=== PATIENT | male | born 1985 | race Caucasian/White ===

== ENCOUNTER 2019-08-13 10:11 | Emergency (ER) | payer BC ==
[2019-08-13] MEDS ORDERED: Benzocaine 20% Topical Spray UD MUCMEM ONE (10:12)
[2019-08-13] MEDS ORDERED: Lidocaine 2% Viscous Solution 15 ML Cup PO ONE (10:12)
--- NOTE | 2019-08-13 10:14 | EDM.PDOC ---
ED HPI GENERAL MEDICAL PROBLEM - General Stated Complaint: right toothache Time Seen by Provider: 08/13/19 10:12 Source of Information: Reports: Patient History Limitations: Reports: No Limitations - History of Present Illness INITIAL COMMENTS - FREE TEXT/NARRATIVE: HISTORY AND PHYSICAL: History of present illness: Patient is a 34-year-old male presents to the ED today with concern of right- sided lower tooth pain 1 day. Patient states in general he is severely bad teeth which have been breaking down for many years. Patient states she has not seen the dentist in many years and has not called to make an appointment for his teeth. Patient denies any swelling and states it feels as if his teeth are broken. He denies any pus drainage, difficulties swallowing/breathing. Patient denies fever, chills, chest pain, shortness of breath, or cough. Denies headache, neck stiff ness, change in vision, syncope, or near syncope. Denies nausea, vomiting, abdominal pain, diarrhea, constipation, or dysuria. Has not noted any blood in urine or stool. Patient has been eating and drinking appropriately. Review of systems: As per history of present illness and below otherwise all systems reviewed and negative. Past medical history: As per history of present illness and as reviewed below otherwise noncontributory. Surgical history: As per history of present illness and as reviewed below otherwise noncontributory. Social history: See social history for further information Family history: As per history of present illness and as reviewed below otherwise noncontributory. Physical exam: General: Patient is alert, oriented, and in no acute distress. Patient sitting comfortably on exam table. HEENT: Atraumatic, normocephalic, pupils equal and reactive bilaterally, negative for conjunctival pallor or scleral icterus, mucous membranes moist, TMs normal bilaterally, throat clear, neck supple, nontender, trachea midline. No drooling or trismus noted. No meningeal signs. No hot potato voice noted. Generalized poor dentition with all teeth in various stages of erosions. Specifically tooth 30-31 are severely eroded with semi exposed nerve root and pain with palpation. No adjacent edema of the gumline or mandible with no sign of abscess. Lungs: Clear to auscultation, breath sounds equal bilaterally, chest nontender. Heart: S1S2, regular rate and rhythm without overt murmur Abdomen: Soft, nondistended, nontender. Negative for masses or hepatosplenomegaly. Negative for costovertebral tenderness. Pelvis: Stable nontender. Genitourinary: Deferred. Rectal: Deferred. Skin: Intact, warm, dry. No lesions or rashes noted. Extremities: Atraumatic, negative for cords or calf pain. Neurovascular unremarkable. Neuro: Awake, alert, oriented. Cranial nerves II through XII unremarkable. Cerebellum unremarkable. Motor and sensory unremarkable throughout. Exam nonfocal. Notes: Discussed the importance for follow-up with a dentist. Voices understanding and is agreeable to plan of care. Denies any further questions or concerns at this time. Diagnostics: None Therapeutics: Dental balls Prescription: None Impression: Severe tooth decay / erosion Plan: 1. Tylenol and/or ibuprofen as directed and as needed for pain management. 2. "Tooth Balls" have been given to you; apply along the gumline every 2-3 hours as needed. Do not swallow these; external use only. 3. Follow-up with a dentist for definitive care. Return to the ED as needed and as discussed. Definitive disposition and diagnosis as appropriate pending reevaluation and review of above. ED ROS GENERAL - Review of Systems Review Of Systems: ROS reveals no pertinent complaints other than HPI. ED EXAM, GENERAL - Physical Exam Exam: See Below (See dictation) Course - Orders/Labs/Meds Meds: Medications Discontinued Medications Generic Name Dose Route Start Last Admin Trade Name Luigiq PRN Reason Stop Dose Admin Benzocaine 2 each 08/13/19 10:12 Hurricaine One 20% MUCMEM 08/13/19 10:13 ONETIME ONE Lidocaine HCl 15 ml 08/13/19 10:12 Xylocaine 2% Viscous PO 08/13/19 10:13 ONETIME ONE Departure - Departure Time of Disposition: 10:25 Disposition: Home, Self-Care 01 Clinical Impression: Tooth decay, Tooth erosion, Poor dentition - Discharge Information Additional Instructions: The following information is given to patients seen in the emergency department who are being discharged to home. This information is to outline your options for follow-up care. We provide all patients seen in our emergency department with a follow-up referral. The need for follow-up, as well as the timing and circumstances, are variable depending upon the specifics of your emergency department visit. If you don't have a primary care physician on staff, we will provide you with a referral. We always advise you to contact your personal physician following an emergency department visit to inform them of the circumstance of the visit and for follow-up with them and/or the need for any referrals to a consulting specialist. The emergency department will also refer you to a specialist when appropriate. This referral assures that you have the opportunity for follow-up care with a specialist. All of these measure are taken in an effort to provide you with optimal care, which includes your follow-up. Under all circumstances we always encourage you to contact your private physician who remains a resource for coordinating your care. When calling for follow-up care, please make the office aware that this follow-up is from your recent emergency room visit. If for any reason you are refused follow-up, please contact the [facility] Emergency Department at and asked to speak to the emergency department charge nurse. [facility] [address] [place] [address] [place] [address] 1. Tylenol and/or ibuprofen as directed and as needed for pain management. 2. "Tooth Balls" have been given to you; apply along the gumline every 2-3 hours as needed. Do not swallow these; external use only. 3. Follow-up with a dentist for definitive care. Return to the ED as needed and as discussed.
== END 2019-08-13 10:40 | disposition home or self-care (01) ==
LOC: MW.ED 10:11
DX: K03.2 Erosion of teeth (principal); K02.9 Dental caries, unspecified
CPT/HCPCS: 99282; A9270

== ENCOUNTER 2020-05-07 20:38 | Observation (INO) | payer SELFPAY ==
[2020-05-07] MEDS ORDERED: Sodium Chloride 0.9% 10 ML Syringe FLUSH PRN (20:58)
[2020-05-07] MEDS ORDERED: Sodium Chloride 0.9% 1,000 ML IV ONE (20:58)
[2020-05-07] MEDS ORDERED: Sodium Chloride 0.9% 2.5 ML Syringe FLUSH PRN (20:58)
[2020-05-07] MEDS ORDERED: Ketorolac 15 MG/ML SDV IVPUSH ONE (20:58)
--- NOTE | 2020-05-07 21:06 | EDM.PDOC ---
ED HPI GENERAL MEDICAL PROBLEM - General Chief Complaint: Respiratory Problem Stated Complaint: DIFFICULTY BREATHING,PAIN IN BACK Time Seen by Provider: 05/07/20 20:52 - History of Present Illness INITIAL COMMENTS - FREE TEXT/NARRATIVE: HISTORY AND PHYSICAL: History of present illness: This is a healthy 34-year-old gentleman who presents the ER today complaining of acute onset of left upper back and shoulder pain with associated shortness of breath that started prior to arrival. Patient denies any recent fevers, shakes, chills, nausea, vomiting, diarrhea, dysuria, frequency, urgency, abdominal pain. Patient denies any calf tenderness or lower extremity edema. Patient reports he is extremely active. Patient denies any family history of PE or DVT. Patient denies any diaphoresis, nausea, pain radiating to his jaws or arms. Patient denies any recent trauma or heavy lifting. 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 Patient reports that the symptoms were relatively acute in onset. Patient reports yesterday he was doing well. Patient reports that he had 3 cups of coffee today which is not unusual for him. He reports that he frequently drinks energy drinks however he has not had any energy drinks today. Patient reports pain is nonreproducible with movement or deep inspiration. Patient denies any known coronavirus exposures. Patient reports he has not been tested for coronavirus in the past. Patient denies any history of hypertension, diabetes, liver, lung, kidney problems. Patient denies any history of DVT or PE in the past. Patient denies any prior surgeries. Patient has no known drug allergies. Patient reports he smokes cigarettes but denies any alcohol or drug use. Review of systems: As per history of present illness and below otherwise all systems reviewed and negative. Past medical history: As per history of present illness and as reviewed below otherwise noncontributory. Surgical history: As per history of present illness and as reviewed below otherwise noncontributory. Social history: No reported history of drug or alcohol abuse. Family history: As per history of present illness and as reviewed below otherwise noncontributory. Physical exam: Patient is tachycardic with a heart rate of 115-125 in the ED. Patient is nondiaphoretic. Constitutional: Patient is oriented to person, place, and time. Appears well- developed and well-nourished. No distress. HEENT: Moist mucous membranes Head: Normocephalic and atraumatic Eyes: Right eye exhibits no discharge. Left eye exhibits no discharge. No scleral icterus Neck: Normal range of motion. No tracheal deviation present. Cardiovascular: Normal rate and regular rhythm. No RV heave. No split S2. Pulmonary: Effort normal, no respiratory distress. Lungs clear without any wheezing rales or rhonchi. Equal breath sounds bilaterally. Abdominal: No distention Musculoskeletal: Normal range of motion, Neurologic: Alert and oriented to person, place and time. Skin: [place], warm and dry. Psychiatric: Normal mood and affect. Behavior is normal. Judgment and thought content normal. Patient was tenderness to palpation to his left upper shoulder and back. Pat ient with palpable left axillary mass tender to palpation. Nursing note and vital signs have been reviewed Diagnostics: CTA of thorax CBC, CMP, troponin, d-dimer, INR Therapeutics: Toradol 15 mg IV NSS wide open x1 L Impression: 1. 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 2. Intractable pain secondary to Likely lymphoma. 3. Persistent unexplained tachycardia 4. Anemia Plan: Admit Definitive disposition and diagnosis as appropriate pending reevaluation and review of above. 12:13 AM: CT scan report highly concerning for lymphoma. Patient has a large amount of mediastinal and hilar adenopathy as well as multiple pulmonary masses and right adnexal adenopathy. Findings most likely representing metastatic disease with lymphoma being high within the differential,. Splenic lesions also noted. No findings of pulmonary embolism. Patient has been reevaluated by me and I discussed with him the CT scan reports. Patient still having severe pain to his left shoulder. Patient be given Dilaudid 1 mg IV, Zofran, Toradol to assist with pain management. Patient has remained tachycardic in the ED despite 1 L of normal saline and Toradol earlier in the ED. Patient's labs are concerning for microcytic anemia with a hemoglobin of 10.6 . 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 - Related Data Allergies Allergy/AdvReac Type Severity Reaction Status Date / Time No Known Allergies Allergy Verified 05/07/20 20:45 Home Meds: Home Meds . [No Known Home Meds] 08/13/19 [History] Past Medical History HEENT History: Reports: None Cardiovascular History: Reports: None Respiratory History: Reports: None Gastrointestinal History: Reports: None Genitourinary History: Reports: None Musculoskeletal History: Reports: None Neurological History: Reports: None Psychiatric History: Reports: None Endocrine/Metabolic History: Reports: None Hematologic History: Reports: None Immunologic History: Reports: None Oncologic (Cancer) History: Reports: None Dermatologic History: Reports: None - Past Surgical History Head Surgeries/Procedures: Reports: None HEENT Surgical History: Reports: None Cardiovascular Surgical History: Reports: None Respiratory Surgical History: Reports: None GI Surgical History: Reports: None Male Surgical History: Reports: None Endocrine Surgical History: Reports: None Neurological Surgical History: Reports: None Musculoskeletal Surgical History: Reports: None Other Musculoskeletal Surgeries/Procedures:: left wrist surgery Oncologic Surgical History: Reports: None Dermatological Surgical History: Reports: None Social & Family History - Family History Family Medical History: Noncontributory - Tobacco Use Smoking Status *Q: Current Every Day Smoker Years of Tobacco use: 20 Packs/Tins Daily: 1 - Caffeine Use Caffeine Use: Reports: None - Recreational Drug Use Recreational Drug Use: No ED ROS GENERAL - Review of Systems Review Of Systems: Comprehensive ROS is negative, except as noted in HPI. ED EXAM, GENERAL - Physical Exam Exam: See Below Course - Vital Signs Last Recorded V/S: Last Vital Signs Temp 97.4 F 05/07/20 20:43 Pulse 113 H 05/07/20 20:43 Resp 19 05/07/20 20:43 BP 127/88 05/07/20 20:43 Pulse Ox 98 05/07/20 20:43 - Orders/Labs/Meds Orders: Active Orders 24 hr Category Date Time Status EKG Documentation Completion [RC] AM Care 05/07/20 20:58 Active Sodium Chloride 0.9% [Saline Flush] Med 05/07/20 20:58 Active 10 ml FLUSH ASDIRECTED PRN Sodium Chloride 0.9% [Saline Flush] Med 05/07/20 20:58 Active 2.5 ml FLUSH ASDIRECTED PRN Saline Lock Insert [OM.PC] Stat Oth 05/07/20 20:58 Ordered Medication Orders Sodium Chloride (Saline Flush) 10 ml FLUSH ASDIRECTED PRN PRN Reason: Keep Vein Open Sodium Chloride (Saline Flush) 2.5 ml FLUSH ASDIRECTED PRN PRN Reason: Keep Vein Open Labs: Laboratory Tests 05/07/20 05/07/20 05/07/20 Range/Units 21:05 21:05 21:05 WBC 16.60 H (4.0-11.0) K/uL RBC 4.57 (4.50-5.90) M/uL Hgb 10.6 L (13.0-17.0) g/dL Hct 34.8 L (38.0-50.0) % MCV 76.1 L (80.0-98.0) fL MCH 23.2 L (27.0-32.0) pg MCHC 30.5 L (31.0-37.0) g/dL RDW Std Deviation 43.1 (28.0-62.0) fl RDW Coeff of Carol 16 H (11.0-15.0) % Plt Count 446 H (150-400) K/uL MPV 9.70 (7.40-12.00) fL Neut % (Auto) 77.0 (48.0-80.0) % Lymph % (Auto) 12.7 L (16.0-40.0) % Vance % (Auto) 8.9 (0.0-15.0) % Eos % (Auto) 1.2 (0.0-7.0) % Baso % (Auto) 0.2 (0.0-1.5) % Neut # (Auto) 12.8 H (1.4-5.7) K/uL Lymph # (Auto) 2.1 (0.6-2.4) K/uL Vance # (Auto) 1.5 H (0.0-0.8) K/uL Eos # (Auto) 0.2 (0.0-0.7) K/uL Baso # (Auto) 0.0 (0.0-0.1) K/uL Nucleated RBC % 0.0 /100WBC Nucleated RBCs # 0 K/uL INR D-Dimer, Quantitative 1.90 H (0.0-0.50) mg/L FEU Sodium 140 (136-148) mmol/L Potassium 3.9 (3.5-5.1) mmol/L Chloride 103 (98-107) mmol/L Carbon Dioxide 27.6 (21.0-32.0) mmol/L BUN 10 (7.0-18.0) mg/dL Creatinine 0.8 (0.8-1.3) mg/dL Est Cr Clr Drug Dosing 125.88 mL/min Estimated GFR (MDRD) > 60.0 ml/min Glucose 113 H (74-106) mg/dL Calcium 9.1 (8.5-10.1) mg/dL Total Bilirubin 0.5 (0.2-1.0) mg/dL AST 24 (15-37) IU/L ALT 15 (14-63) IU/L Alkaline Phosphatase 90 (46-116) U/L Troponin I < 0.050 (0.000-0.056) ng/mL B-Natriuretic Peptide (<100) PG/ML Total Protein 7.3 (6.4-8.2) g/dL Albumin 3.1 L (3.4-5.0) g/dL Globulin 4.2 H (2.6-4.0) g/dL Albumin/Globulin Ratio 0.7 L (0.9-1.6) 05/07/20 05/07/20 Range/Units 21:05 21:05 WBC (4.0-11.0) K/uL RBC (4.50-5.90) M/uL Hgb (13.0-17.0) g/dL Hct (38.0-50.0) % MCV (80.0-98.0) fL MCH (27.0-32.0) pg MCHC (31.0-37.0) g/dL RDW Std Deviation (28.0-62.0) fl RDW Coeff of Carol (11.0-15.0) % Plt Count (150-400) K/uL MPV (7.40-12.00) fL Neut % (Auto) (48.0-80.0) % Lymph % (Auto) (16.0-40.0) % Vance % (Auto) (0.0-15.0) % Eos % (Auto) (0.0-7.0) % Baso % (Auto) (0.0-1.5) % Neut # (Auto) (1.4-5.7) K/uL Lymph # (Auto) (0.6-2.4) K/uL Vance # (Auto) (0.0-0.8) K/uL Eos # (Auto) (0.0-0.7) K/uL Baso # (Auto) (0.0-0.1) K/uL Nucleated RBC % /100WBC Nucleated RBCs # K/uL INR 1.00 D-Dimer, Quantitative (0.0-0.50) mg/L FEU Sodium (136-148) mmol/L Potassium (3.5-5.1) mmol/L Chloride (98-107) mmol/L Carbon Dioxide (21.0-32.0) mmol/L BUN (7.0-18.0) mg/dL Creatinine (0.8-1.3) mg/dL Est Cr Clr Drug Dosing mL/min Estimated GFR (MDRD) ml/min Glucose (74-106) mg/dL Calcium (8.5-10.1) mg/dL Total Bilirubin (0.2-1.0) mg/dL AST (15-37) IU/L ALT (14-63) IU/L Alkaline Phosphatase (46-116) U/L Troponin I (0.000-0.056) ng/mL B-Natriuretic Peptide 78 (<100) PG/ML Total Protein (6.4-8.2) g/dL Albumin (3.4-5.0) g/dL Globulin (2.6-4.0) g/dL Albumin/Globulin Ratio (0.9-1.6) Meds: Medications Generic Name Dose Route Start Last Admin Trade Name Freq PRN Reason Stop Dose Admin Sodium Chloride 10 ml 05/07/20 20:58 Saline Flush FLUSH ASDIRECTED PRN Keep Vein Open Sodium Chloride 2.5 ml 05/07/20 20:58 Saline Flush FLUSH ASDIRECTED PRN Keep Vein Open Discontinued Medications Generic Name Dose Route Start Last Admin Trade Name Freq PRN Reason Stop Dose Admin Hydromorphone HCl 1 mg 05/08/20 00:11 Dilaudid IVPUSH 05/08/20 00:12 ONETIME ONE Sodium Chloride 1,000 mls @ 999 mls/hr 05/07/20 20:58 05/07/20 21:17 Normal Saline IV 05/07/20 21:58 999 mls/hr .Bolus ONE Administration Iopamidol 50 ml 05/07/20 22:55 05/07/20 22:57 Isovue-370 (76%) IV 05/07/20 22:56 50 ml ONETIME STA Administration Ketorolac Tromethamine 15 mg 05/07/20 20:58 05/07/20 21:17 Toradol IVPUSH 05/07/20 20:59 15 mg ONETIME ONE Administration Nicotine 21 mg 05/08/20 00:11 Habitrol TRDERM 05/08/20 00:12 ONETIME ONE Ondansetron HCl 4 mg 05/08/20 00:11 Zofran IVPUSH 05/08/20 00:12 ONETIME ONE Departure - Departure Time of Disposition: 00:19 Disposition: Admitted As Inpatient 66 Clinical Impression: Microcytic anemia, Lymphoma involving lung, Intractable pain, Tachycardia - Discharge Information *PRESCRIPTION DRUG MONITORING PROGRAM REVIEWED*: Not Applicable *COPY OF PRESCRIPTION DRUG MONITORING REPORT IN PATIENT [place]: Not Applicable Referrals: PCP,None [Primary Care Provider] - Forms: ED Department Discharge Sepsis Event Note (ED) - Evaluation Sepsis Screening Result: No Definite Risk - Focused Exam Vital Signs: Vital Signs Temp Pulse Resp BP Pulse Ox 05/07/20 20:43 97.4 F 113 H 19 127/88 98 - My Orders Last 24 Hours: My Active Orders 05/07/20 20:58 EKG Documentation Completion [RC] AM Sodium Chloride 0.9% [Saline Flush] 10 ml FLUSH ASDIRECTED PRN Sodium Chloride 0.9% [Saline Flush] 2.5 ml FLUSH ASDIRECTED PRN Saline Lock Insert [OM.PC] Stat - Assessment/Plan Last 24 Hours: My Active Orders 05/07/20 20:58 EKG Documentation Completion [RC] AM Sodium Chloride 0.9% [Saline Flush] 10 ml FLUSH ASDIRECTED PRN Sodium Chloride 0.9% [Saline Flush] 2.5 ml FLUSH ASDIRECTED PRN Saline Lock Insert [OM.PC] Stat
[2020-05-07 21:53] LABS: BLOOD UREA NITROGEN,BUN 10 mg/dL (7.0-18.0); CARBON DIOXIDE,CO2 27.6 mmol/L (21.0-32.0); CHLORIDE,CL 103 mmol/L (98-107); GLUCOSE RANDOM 113 mg/dL (74-106); POTASSIUM,K 3.9 mmol/L (3.5-5.1); SODIUM,NA 140 mmol/L (136-148)
[2020-05-07] MEDS ORDERED: Iopamidol 755 MG/ML 50 ML Bottle IV STA (22:55)
--- NOTE | 2020-05-07 23:06 | CT ---
CT chest Technique: Multiple axial sections were obtained from above the lung apices inferiorly through the lung bases. Intravenous contrast was utilized. Study has been performed as a pulmonary angiogram protocol. Findings: Pulmonary arteries are well-opacified. No filling defects are seen to indicate pulmonary embolism. Diffuse mediastinal and hilar adenopathy is seen. Multiple parenchymal masses are seen within both sides of the chest. Findings are compatible with diffuse metastatic disease. Massive adenopathy is also noted within the right axillary region. Splenic lesion is also seen. Impression: 1. Large amount of mediastinal and hilar adenopathy as well as multiple pulmonary masses and right axillary adenopathy. Findings most likely representing metastatic disease with lymphoma being high within the differential, please correlate if type of malignancy is known. Splenic lesion is also noted. 2. No findings of pulmonary embolism. Diagnostic code #9 Study was dictated in MDT
[2020-05-08] MEDS ORDERED: HYDROmorphone 1 MG/ML Syringe IVPUSH ONE (00:11)
[2020-05-08] MEDS ORDERED: Ondansetron 4 MG/2 ML SDV IVPUSH ONE (00:11)
[2020-05-08] MEDS ORDERED: Nicotine 21 MG/24 Hr Patch TRDERM ONE (00:11)
[2020-05-08] MEDS ORDERED: Ondansetron 4 MG/2 ML SDV IVPUSH PRN (01:14)
[2020-05-08] MEDS ORDERED: Albuterol/Ipratropium 3.0-0.5 MG/3 ML Neb Soln NEB PRN (01:14)
[2020-05-08] MEDS ORDERED: Morphine 10 MG/ML Syringe IVPUSH PRN (01:14)
[2020-05-08] MEDS ORDERED: Enoxaparin 40 MG/0.4 ML Syringe SUBCUT SCH ×2 (01:15→06:00)
[2020-05-08] MEDS: Lactated Ringers 1,000 ML IV SCH ×2 (03:37→11:09)
[2020-05-08] MEDS: Morphine 2 MG/ML Syringe IVPUSH PRN ×4 (04:34→21:13)
[2020-05-08 06:27] LABS: BLOOD UREA NITROGEN,BUN 10 mg/dL (7.0-18.0); CHLORIDE,CL 102 mmol/L (98-107); GLUCOSE RANDOM 139 mg/dL (74-106); POTASSIUM,K 3.6 mmol/L (3.5-5.1); SODIUM,NA 140 mmol/L (136-148)
[2020-05-08] MEDS: Pantoprazole 40 MG in Sodium Chloride 0.9% 10 ML IV SCH ×2 (08:43→21:27)
[2020-05-08] MEDS: Nicotine 14 MG/24 Hr Patch TRDERM SCH (08:45)
[2020-05-08] MEDS ORDERED: Pantoprazole 40 MG Vial IV SCH (09:00)
--- NOTE | 2020-05-08 09:20 | PCM.HP.2 ---
H&P History of Present Illness - General Date of Service: 05/08/20 Admit Problem/Dx: Admission Diagnosis/Problem Admission Diagnosis/Problem Tachycardia Source of Information: Patient History Limitations: Reports: No Limitations - History of Present Illness Initial Comments - Free Text/Narative: 34 y.o generally healthy male presenting yesterday w. acute left upper back and shoulder pain, dyspnea which started about 1-2 hours prior to arrival to ED. pt. 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 Denies other symptoms including fevers, chills, N/V, diarrhea and or constipation. Denies night sweats, weight loss and or changes in appetite as well. ED course: Found to be tachycardic in the 110's-130's; recived [place] bolus; elevated D-dimer; CTA ordered CTA: large mediastinal LAD, multiple pulmonary masses and right adnexal adenopathy. troponin negative Pain control: morphine, Toradol + Zofran Admitted to observation Bedside AM: pt. endorses left shoulder pain. Discussed mass in his right armpit ; noticed not too long ago; has not had it evaluated. Mentions having a "lump" taken out over his left wrist; but cannot recall what was removed. NO other acute complaints at this time. Bilateral Upper Posterior Back Pain Score (Numeric/FACES): 10 - Related Data Allergies/Adverse Reactions: Allergies Allergy/AdvReac Type Severity Reaction Status Date / Time No Known Allergies Allergy Verified 05/08/20 07:36 Home Medications: Home Meds . [No Known Home Meds] 08/13/19 [History] Past Medical History - Past Health History Medical/Surgical History: Denies Medical/Surgical History HEENT History: Reports: None Cardiovascular History: Reports: None Respiratory History: Reports: None Gastrointestinal History: Reports: None Genitourinary History: Reports: None Musculoskeletal History: Reports: None Neurological History: Reports: None Psychiatric History: Reports: None Endocrine/Metabolic History: Reports: None Hematologic History: Reports: None Immunologic History: Reports: None Oncologic (Cancer) History: Reports: Other (See Below) Other Oncologic History: pt states, whatever cancer I currently have Dermatologic History: Reports: None - Infectious Disease History Infectious Disease History: Reports: Chicken Pox - Past Surgical History Head Surgeries/Procedures: Reports: None HEENT Surgical History: Reports: None Cardiovascular Surgical History: Reports: None Respiratory Surgical History: Reports: None GI Surgical History: Reports: None Male Surgical History: Reports: None Endocrine Surgical History: Reports: None Neurological Surgical History: Reports: None Musculoskeletal Surgical History: Reports: None Other Musculoskeletal Surgeries/Procedures:: left wrist surgery Oncologic Surgical History: Reports: None Dermatological Surgical History: Reports: None Social & Family History - Family History Family Medical History: Noncontributory Cardiac: Reports: [place] OBGYN: Reports: Oncologic: Reports: Breast - Tobacco Use Smoking Status *Q: Current Every Day Smoker Years of Tobacco use: 14 Packs/Tins Daily: 1 Used Tobacco, but Quit: No Second Hand Smoke Exposure: No - Caffeine Use Caffeine Use: Reports: Coffee, Energy Drinks, Soda, Tea - Recreational Drug Use Recreational Drug Use: No H&P Review of Systems - Review of Systems: Review Of Systems: See Below General: Denies: Fever, Chills, Malaise, Weakness, Fatigue, Night Sweats, Diaphoresis, Decreased Appetite, Weight Loss, Weight Gain HEENT: Reports: No Symptoms Pulmonary: Reports: No Symptoms Cardiovascular: Reports: No Symptoms Gastrointestinal: Reports: No Symptoms Genitourinary: Reports: No Symptoms Musculoskeletal: Reports: Shoulder Pain, Back Pain Skin: Reports: No Symptoms Psychiatric: Reports: No Symptoms Neurological: Reports: No Symptoms Exam - Exam Exam: See Below - Vital Signs Vital Signs: Last Vital Signs Temp 100.6 F 05/08/20 08:31 Pulse 110 H 05/08/20 08:31 Resp 22 H 05/08/20 08:31 BP 130/86 05/08/20 08:31 Pulse Ox 90 L 05/08/20 08:31 Weight: 77.337 kg - Exam Quality Assessment: No: Supplemental Oxygen General: Alert, Oriented, Cooperative HEENT: EOMI Neck: Supple, Trachea Midline. No: Lymphadenopathy Lungs: Clear to Auscultation, Normal Respiratory Effort Cardiovascular: Regular Rate, Regular Rhythm GI/Abdominal Exam: Soft, Non-Tender, No Organomegaly Back Exam: Other (2 x 2 cm soft mass/spongy; non-fluctuant over left shoulder; over bony prominence; -mild tenderness ) Extremities: Normal Inspection, Normal Range of Motion Skin: Other (right axilla: large 3x 2 inch moveable mass apprecaited; non-tender , no overlyingh skin changes ) Neurological: Cranial Nerves Intact Neuro Extensive - Mental Status: Alert, Oriented x3, Normal Mood/Affect Neuro Extensive - Motor, Sensory, Reflexes: Normal Gait Psychiatric: Alert, Normal Affect, Normal Mood - Patient Data Lab Results Last 24 hrs: Laboratory Results - last 24 hr 05/07/20 05/07/20 05/07/20 Range/Units 21:05 21:05 21:05 WBC 16.60 H (4.0-11.0) K/uL RBC 4.57 (4.50-5.90) M/uL Hgb 10.6 L (13.0-17.0) g/dL Hct 34.8 L (38.0-50.0) % MCV 76.1 L (80.0-98.0) fL MCH 23.2 L (27.0-32.0) pg MCHC 30.5 L (31.0-37.0) g/dL RDW Std Deviation 43.1 (28.0-62.0) fl RDW Coeff of Carol 16 H (11.0-15.0) % Plt Count 446 H (150-400) K/uL MPV 9.70 (7.40-12.00) fL Neut % (Auto) 77.0 (48.0-80.0) % Lymph % (Auto) 12.7 L (16.0-40.0) % [place] % (Auto) 8.9 (0.0-15.0) % Eos % (Auto) 1.2 (0.0-7.0) % Baso % (Auto) 0.2 (0.0-1.5) % Neut # (Auto) 12.8 H (1.4-5.7) K/uL Lymph # (Auto) 2.1 (0.6-2.4) K/uL [place] # (Auto) 1.5 H (0.0-0.8) K/uL Eos # (Auto) 0.2 (0.0-0.7) K/uL Baso # (Auto) 0.0 (0.0-0.1) K/uL Nucleated RBC % 0.0 /100WBC Nucleated RBCs # 0 K/uL INR D-Dimer, Quantitative 1.90 H (0.0-0.50) mg/L FEU Sodium 140 (136-148) mmol/L Potassium 3.9 (3.5-5.1) mmol/L Chloride 103 (98-107) mmol/L Carbon Dioxide 27.6 (21.0-32.0) mmol/L BUN 10 (7.0-18.0) mg/dL Creatinine 0.8 (0.8-1.3) mg/dL Est Cr Clr Drug Dosing 125.88 mL/min Estimated GFR (MDRD) > 60.0 ml/min Glucose 113 H (74-106) mg/dL Calcium 9.1 (8.5-10.1) mg/dL Phosphorus (2.6-4.7) mg/dL Magnesium (1.8-2.4) mg/dL Total Bilirubin 0.5 (0.2-1.0) mg/dL AST 24 (15-37) IU/L ALT 15 (14-63) IU/L Alkaline Phosphatase 90 (46-116) U/L Troponin I < 0.050 (0.000-0.056) ng/mL B-Natriuretic Peptide (<100) PG/ML Total Protein 7.3 (6.4-8.2) g/dL Albumin 3.1 L (3.4-5.0) g/dL Globulin 4.2 H (2.6-4.0) g/dL Albumin/Globulin Ratio 0.7 L (0.9-1.6) 05/07/20 05/07/20 05/08/20 Range/Units 21:05 21:05 05:45 WBC 14.44 H (4.0-11.0) K/uL RBC 4.39 L (4.50-5.90) M/uL Hgb 10.1 L (13.0-17.0) g/dL Hct 33.5 L (38.0-50.0) % MCV 76.3 L (80.0-98.0) fL MCH 23.0 L (27.0-32.0) pg MCHC 30.1 L (31.0-37.0) g/dL RDW Std Deviation 43.4 (28.0-62.0) fl RDW Coeff of Carol 16 H (11.0-15.0) % Plt Count 419 H (150-400) K/uL MPV 9.80 (7.40-12.00) fL Neut % (Auto) 77.8 (48.0-80.0) % Lymph % (Auto) 12.2 L (16.0-40.0) % [place] % (Auto) 8.6 (0.0-15.0) % Eos % (Auto) 1.2 (0.0-7.0) % Baso % (Auto) 0.2 (0.0-1.5) % Neut # (Auto) 11.2 H (1.4-5.7) K/uL Lymph # (Auto) 1.8 (0.6-2.4) K/uL [place] # (Auto) 1.2 H (0.0-0.8) K/uL Eos # (Auto) 0.2 (0.0-0.7) K/uL Baso # (Auto) 0.0 (0.0-0.1) K/uL Nucleated RBC % 0.0 /100WBC Nucleated RBCs # 0 K/uL INR 1.00 D-Dimer, Quantitative (0.0-0.50) mg/L FEU Sodium (136-148) mmol/L Potassium (3.5-5.1) mmol/L Chloride (98-107) mmol/L Carbon Dioxide (21.0-32.0) mmol/L BUN (7.0-18.0) mg/dL Creatinine (0.8-1.3) mg/dL Est Cr Clr Drug Dosing mL/min Estimated GFR (MDRD) ml/min Glucose (74-106) mg/dL Calcium (8.5-10.1) mg/dL Phosphorus (2.6-4.7) mg/dL Magnesium (1.8-2.4) mg/dL Total Bilirubin (0.2-1.0) mg/dL AST (15-37) IU/L ALT (14-63) IU/L Alkaline Phosphatase (46-116) U/L Troponin I (0.000-0.056) ng/mL B-Natriuretic Peptide 78 (<100) PG/ML Total Protein (6.4-8.2) g/dL Albumin (3.4-5.0) g/dL Globulin (2.6-4.0) g/dL Albumin/Globulin Ratio (0.9-1.6) 05/08/20 Range/Units 05:45 WBC (4.0-11.0) K/uL RBC (4.50-5.90) M/uL Hgb (13.0-17.0) g/dL Hct (38.0-50.0) % MCV (80.0-98.0) fL MCH (27.0-32.0) pg MCHC (31.0-37.0) g/dL RDW Std Deviation (28.0-62.0) fl RDW Coeff of [place] (11.0-15.0) % Plt Count (150-400) K/uL MPV (7.40-12.00) fL Neut % (Auto) (48.0-80.0) % Lymph % (Auto) (16.0-40.0) % [place] % (Auto) (0.0-15.0) % Eos % (Auto) (0.0-7.0) % Baso % (Auto) (0.0-1.5) % Neut # (Auto) (1.4-5.7) K/uL Lymph # (Auto) (0.6-2.4) K/uL [place] # (Auto) (0.0-0.8) K/uL Eos # (Auto) (0.0-0.7) K/uL Baso # (Auto) (0.0-0.1) K/uL Nucleated RBC % /100WBC Nucleated RBCs # K/uL INR D-Dimer, Quantitative (0.0-0.50) mg/L FEU Sodium 140 (136-148) mmol/L Potassium 3.6 (3.5-5.1) mmol/L Chloride 102 (98-107) mmol/L Carbon Dioxide 30.0 (21.0-32.0) mmol/L BUN 10 (7.0-18.0) mg/dL Creatinine 0.7 L (0.8-1.3) mg/dL Est Cr Clr Drug Dosing 143.86 mL/min Estimated GFR (MDRD) > 60.0 ml/min Glucose 139 H (74-106) mg/dL Calcium 8.2 L (8.5-10.1) mg/dL Phosphorus 2.4 L (2.6-4.7) mg/dL Magnesium 2.0 (1.8-2.4) mg/dL Total Bilirubin (0.2-1.0) mg/dL AST (15-37) IU/L ALT (14-63) IU/L Alkaline Phosphatase (46-116) U/L Troponin I (0.000-0.056) ng/mL B-Natriuretic Peptide (<100) PG/ML Total Protein (6.4-8.2) g/dL Albumin (3.4-5.0) g/dL Globulin (2.6-4.0) g/dL Albumin/Globulin Ratio (0.9-1.6) Result Diagrams: 05/08/20 05:45 05/08/20 05:45 Sepsis Event Note - Evaluation Sepsis Screening Result: Sepsis Risk - Focused Exam Vital Signs: Vital Signs Temp Pulse Resp BP Pulse Ox Pulse Ox 05/08/20 08:31 100.6 F 110 H 22 H 130/86 90 L 05/08/20 05:45 99.1 F 104 H 16 123/74 96 05/08/20 01:35 97.6 F 18 136/70 98 05/08/20 01:15 98 98 Date Exam was Performed: 05/08/20 Time Exam was Performed: 17:46 Problem List Initiated/Reviewed/Updated: Yes Orders Last 24hrs: Active Orders 24 hr Category Date Time Status Patient Status [ADT] Routine ADT 05/08/20 00:28 Active Ambulate [RC] ASDIRECTED Care 05/08/20 01:14 Active Antiembolic Devices [RC] PER UNIT ROUTINE Care 05/08/20 01:16 Active Oxygen Therapy [RC] PRN Care 05/08/20 01:15 Active Pulse Oximetry [RC] PRN Care 05/08/20 01:15 Active RT Aerosol Therapy [RC] ASDIRECTED Care 05/08/20 01:18 Active VTE/DVT Education [RC] Q12H Care 05/08/20 01:15 Active Vital Signs [RC] Q4H Care 05/08/20 01:15 Active Regular Diet [DIET] Diet 05/08/20 Breakfast Active UA W/MICROSCOPIC [URIN] Routine Lab 05/08/20 01:14 Ordered Albuterol/Ipratropium [DuoNeb 3.0-0.5 MG/3 ML] Med 05/08/20 01:14 Active 3 ml NEB Q4HRRT PRN Enoxaparin [Lovenox] Med 05/08/20 06:00 Active 40 mg SUBCUT Q24H Lactated Ringers [Ringers, Lactated] 1,000 ml Med 05/08/20 01:15 Active IV ASDIRECTED Morphine Sulfate [Morphine] Med 05/08/20 04:03 Active 1 mg IVPUSH Q4H PRN Nicotine [Habitrol] Med 05/08/20 09:00 Active 14 mg TRDERM DAILY Ondansetron [Zofran] Med 05/08/20 01:14 Active 4 mg IVPUSH Q4H PRN Pantoprazole [ProTONIX IV] 40 mg Med 05/08/20 09:00 Active Sodium Chloride 0.9% [Normal Saline] 10 ml IV Q12H Sodium Chloride 0.9% [Saline Flush] Med 05/07/20 20:58 Active 10 ml FLUSH ASDIRECTED PRN Sodium Chloride 0.9% [Saline Flush] Med 05/07/20 20:58 Active 2.5 ml FLUSH ASDIRECTED PRN Saline Lock Insert [OM.PC] Stat Oth 05/07/20 20:58 Ordered Sequential Compression Device [OM.PC] Per Unit Routine Oth 05/08/20 01:15 Ordered Resuscitation Status Routine Resus Stat 05/08/20 01:14 Ordered Medication Orders Albuterol/Ipratropium (Duoneb 3.0-0.5 Mg/3 Ml) 3 ml NEB Q4HRRT PRN PRN Reason: Shortness Of Breath/wheezing Enoxaparin Sodium (Lovenox) 40 mg SUBCUT Q24H [facility] Last Admin: 05/08/20 06:36 Dose: 40 mg Lactated Ringer's (Ringers, Lactated) 1,000 mls @ 125 mls/hr IV ASDIRECTED [facility] Last Admin: 05/08/20 03:37 Dose: 125 mls/hr Pantoprazole Sodium 40 mg/ (Sodium Chloride) 10 mls @ 200 mls/hr IV Q12H [facility] Last Admin: 05/08/20 08:43 Dose: 200 mls/hr Morphine Sulfate (Morphine) 1 mg IVPUSH Q4H PRN PRN Reason: Pain (severe 7-10) Last Admin: 05/08/20 08:48 Dose: 1 mg Admin: 05/08/20 04:34 Dose: 1 mg Nicotine (Habitrol) 14 mg TRDERM DAILY [facility] Last Admin: 05/08/20 08:45 Dose: 14 mg Ondansetron HCl (Zofran) 4 mg IVPUSH Q4H PRN PRN Reason: Nausea/Vomiting Sodium Chloride (Saline Flush) 10 ml FLUSH ASDIRECTED PRN PRN Reason: Keep Vein Open Sodium Chloride (Saline Flush) 2.5 ml FLUSH ASDIRECTED PRN PRN Reason: Keep Vein Open Assessment/Plan Comment:: Assessment: 1. Multiple Masses/LAD concerning for Lymphoma 2. Left shoulder pain w. negative Troponin 3. Tachycardia 4. Microcytic anemia Plan Admit to obs. Full code. I/O's per routine. DVT: heparin 1. Discussed findings of CTA w. patient; LAD concerning for Lymphoma however definitive diagnosis will require biopsy proven Neoplasm; will require follow up with IR possibly in [place] for this. Scheduled with surgery for an excisonal biopsy of right axillary mass this Thursday; Pain could possibly be from mass effect; however tachycardia is also concerning : telemtry placed; Sinus Tachycardia noted; pt. endorses significant PMH of anxiety as wll; will do 0.5 Ativan PRN. Will consider other intervention as needed.
--- NOTE | 2020-05-08 11:47 | PCM.PN ---
- General Info Date of Service: 05/08/20 - Patient Data Vitals - Most Recent: Last Vital Signs Temp 100.6 F 05/08/20 08:31 Pulse 110 H 05/08/20 08:31 Resp 22 H 05/08/20 08:31 BP 130/86 05/08/20 08:31 Pulse Ox 90 L 05/08/20 08:31 Weight - Most Recent: 77.337 kg I&O - Last 24 Hours: Intake & Output 05/07/20 05/08/20 05/08/20 22:59 06:59 14:59 Intake Total 240 Output Total 0 Balance 240 Lab Results Last 24 Hours: Laboratory Results - last 24 hr 05/07/20 05/07/20 05/07/20 Range/Units 21:05 21:05 21:05 WBC 16.60 H (4.0-11.0) K/uL RBC 4.57 (4.50-5.90) M/uL Hgb 10.6 L (13.0-17.0) g/dL Hct 34.8 L (38.0-50.0) % MCV 76.1 L (80.0-98.0) fL MCH 23.2 L (27.0-32.0) pg MCHC 30.5 L (31.0-37.0) g/dL RDW Std Deviation 43.1 (28.0-62.0) fl RDW Coeff of Carol 16 H (11.0-15.0) % Plt Count 446 H (150-400) K/uL MPV 9.70 (7.40-12.00) fL Neut % (Auto) 77.0 (48.0-80.0) % Lymph % (Auto) 12.7 L (16.0-40.0) % [place] % (Auto) 8.9 (0.0-15.0) % Eos % (Auto) 1.2 (0.0-7.0) % Baso % (Auto) 0.2 (0.0-1.5) % Neut # (Auto) 12.8 H (1.4-5.7) K/uL Lymph # (Auto) 2.1 (0.6-2.4) K/uL [place] # (Auto) 1.5 H (0.0-0.8) K/uL Eos # (Auto) 0.2 (0.0-0.7) K/uL Baso # (Auto) 0.0 (0.0-0.1) K/uL Nucleated RBC % 0.0 /100WBC Nucleated RBCs # 0 K/uL INR D-Dimer, Quantitative 1.90 H (0.0-0.50) mg/L FEU Sodium 140 (136-148) mmol/L Potassium 3.9 (3.5-5.1) mmol/L Chloride 103 (98-107) mmol/L Carbon Dioxide 27.6 (21.0-32.0) mmol/L BUN 10 (7.0-18.0) mg/dL Creatinine 0.8 (0.8-1.3) mg/dL Est Cr Clr Drug Dosing 125.88 mL/min Estimated GFR (MDRD) > 60.0 ml/min Glucose 113 H (74-106) mg/dL Calcium 9.1 (8.5-10.1) mg/dL Phosphorus (2.6-4.7) mg/dL Magnesium (1.8-2.4) mg/dL Total Bilirubin 0.5 (0.2-1.0) mg/dL AST 24 (15-37) IU/L ALT 15 (14-63) IU/L Alkaline Phosphatase 90 (46-116) U/L Troponin I < 0.050 (0.000-0.056) ng/mL B-Natriuretic Peptide (<100) PG/ML Total Protein 7.3 (6.4-8.2) g/dL Albumin 3.1 L (3.4-5.0) g/dL Globulin 4.2 H (2.6-4.0) g/dL Albumin/Globulin Ratio 0.7 L (0.9-1.6) Urine Color Urine Appearance Urine pH (5.0-8.0) Ur Specific [place] (1.001-1.035) Urine Protein (NEGATIVE) mg/dL Urine Glucose (UA) (NEGATIVE) mg/dL Urine Ketones (NEGATIVE) mg/dL Urine Occult Blood (NEGATIVE) Urine Nitrite (NEGATIVE) Urine Bilirubin (NEGATIVE) Urine Urobilinogen (<2.0) EU/dL Ur Leukocyte Esterase (NEGATIVE) Urine RBC (0-2/HPF) Urine WBC (0-5/HPF) Ur Epithelial Cells (NONE-FEW) Urine Bacteria (NEGATIVE) 05/07/20 05/07/20 05/08/20 Range/Units 21:05 21:05 05:45 WBC 14.44 H (4.0-11.0) K/uL RBC 4.39 L (4.50-5.90) M/uL Hgb 10.1 L (13.0-17.0) g/dL Hct 33.5 L (38.0-50.0) % MCV 76.3 L (80.0-98.0) fL MCH 23.0 L (27.0-32.0) pg MCHC 30.1 L (31.0-37.0) g/dL RDW Std Deviation 43.4 (28.0-62.0) fl RDW Coeff of Carol 16 H (11.0-15.0) % Plt Count 419 H (150-400) K/uL MPV 9.80 (7.40-12.00) fL Neut % (Auto) 77.8 (48.0-80.0) % Lymph % (Auto) 12.2 L (16.0-40.0) % [place] % (Auto) 8.6 (0.0-15.0) % Eos % (Auto) 1.2 (0.0-7.0) % Baso % (Auto) 0.2 (0.0-1.5) % Neut # (Auto) 11.2 H (1.4-5.7) K/uL Lymph # (Auto) 1.8 (0.6-2.4) K/uL [place] # (Auto) 1.2 H (0.0-0.8) K/uL Eos # (Auto) 0.2 (0.0-0.7) K/uL Baso # (Auto) 0.0 (0.0-0.1) K/uL Nucleated RBC % 0.0 /100WBC Nucleated RBCs # 0 K/uL INR 1.00 D-Dimer, Quantitative (0.0-0.50) mg/L FEU Sodium (136-148) mmol/L Potassium (3.5-5.1) mmol/L Chloride (98-107) mmol/L Carbon Dioxide (21.0-32.0) mmol/L BUN (7.0-18.0) mg/dL Creatinine (0.8-1.3) mg/dL Est Cr Clr Drug Dosing mL/min Estimated GFR (MDRD) ml/min Glucose (74-106) mg/dL Calcium (8.5-10.1) mg/dL Phosphorus (2.6-4.7) mg/dL Magnesium (1.8-2.4) mg/dL Total Bilirubin (0.2-1.0) mg/dL AST (15-37) IU/L ALT (14-63) IU/L Alkaline Phosphatase (46-116) U/L Troponin I (0.000-0.056) ng/mL B-Natriuretic Peptide 78 (<100) PG/ML Total Protein (6.4-8.2) g/dL Albumin (3.4-5.0) g/dL Globulin (2.6-4.0) g/dL Albumin/Globulin Ratio (0.9-1.6) Urine Color Urine Appearance Urine pH (5.0-8.0) Ur Specific [place] (1.001-1.035) Urine Protein (NEGATIVE) mg/dL Urine Glucose (UA) (NEGATIVE) mg/dL Urine Ketones (NEGATIVE) mg/dL Urine Occult Blood (NEGATIVE) Urine Nitrite (NEGATIVE) Urine Bilirubin (NEGATIVE) Urine Urobilinogen (<2.0) EU/dL Ur Leukocyte Esterase (NEGATIVE) Urine RBC (0-2/HPF) Urine WBC (0-5/HPF) Ur Epithelial Cells (NONE-FEW) Urine Bacteria (NEGATIVE) 05/08/20 05/08/20 Range/Units 05:45 11:08 WBC (4.0-11.0) K/uL RBC (4.50-5.90) M/uL Hgb (13.0-17.0) g/dL Hct (38.0-50.0) % MCV (80.0-98.0) fL MCH (27.0-32.0) pg MCHC (31.0-37.0) g/dL RDW Std Deviation (28.0-62.0) fl RDW Coeff of [place] (11.0-15.0) % Plt Count (150-400) K/uL MPV (7.40-12.00) fL Neut % (Auto) (48.0-80.0) % Lymph % (Auto) (16.0-40.0) % [place] % (Auto) (0.0-15.0) % Eos % (Auto) (0.0-7.0) % Baso % (Auto) (0.0-1.5) % Neut # (Auto) (1.4-5.7) K/uL Lymph # (Auto) (0.6-2.4) K/uL [place] # (Auto) (0.0-0.8) K/uL Eos # (Auto) (0.0-0.7) K/uL Baso # (Auto) (0.0-0.1) K/uL Nucleated RBC % /100WBC Nucleated RBCs # K/uL INR D-Dimer, Quantitative (0.0-0.50) mg/L FEU Sodium 140 (136-148) mmol/L Potassium 3.6 (3.5-5.1) mmol/L Chloride 102 (98-107) mmol/L Carbon Dioxide 30.0 (21.0-32.0) mmol/L BUN 10 (7.0-18.0) mg/dL Creatinine 0.7 L (0.8-1.3) mg/dL Est Cr Clr Drug Dosing 143.86 mL/min Estimated GFR (MDRD) > 60.0 ml/min Glucose 139 H (74-106) mg/dL Calcium 8.2 L (8.5-10.1) mg/dL Phosphorus 2.4 L (2.6-4.7) mg/dL Magnesium 2.0 (1.8-2.4) mg/dL Total Bilirubin (0.2-1.0) mg/dL AST (15-37) IU/L ALT (14-63) IU/L Alkaline Phosphatase (46-116) U/L Troponin I (0.000-0.056) ng/mL B-Natriuretic Peptide (<100) PG/ML Total Protein (6.4-8.2) g/dL Albumin (3.4-5.0) g/dL Globulin (2.6-4.0) g/dL Albumin/Globulin Ratio (0.9-1.6) Urine Color YELLOW Urine Appearance CLEAR Urine pH 6.5 (5.0-8.0) Ur Specific [place] 1.015 (1.001-1.035) Urine Protein NEGATIVE (NEGATIVE) mg/dL Urine Glucose (UA) NEGATIVE (NEGATIVE) mg/dL Urine Ketones NEGATIVE (NEGATIVE) mg/dL Urine Occult Blood NEGATIVE (NEGATIVE) Urine Nitrite NEGATIVE (NEGATIVE) Urine Bilirubin NEGATIVE (NEGATIVE) Urine Urobilinogen 2.0 H (<2.0) EU/dL Ur Leukocyte Esterase NEGATIVE (NEGATIVE) Urine RBC NONE SEEN (0-2/HPF) Urine WBC NONE SEEN (0-5/HPF) Ur Epithelial Cells RARE (NONE-FEW) Urine Bacteria NOT SEEN (NEGATIVE) Med Orders - Current: Current Medications Albuterol/Ipratropium (Duoneb 3.0-0.5 Mg/3 Ml) 3 ml NEB Q4HRRT PRN PRN Reason: Shortness Of Breath/wheezing Enoxaparin Sodium (Lovenox) 40 mg SUBCUT Q24H [facility] Last Admin: 05/08/20 06:36 Dose: 40 mg Lactated Ringer's (Ringers, Lactated) 1,000 mls @ 125 mls/hr IV ASDIRECTED [facility] Last Admin: 05/08/20 11:09 Dose: 125 mls/hr Pantoprazole Sodium 40 mg/ (Sodium Chloride) 10 mls @ 200 mls/hr IV Q12H [facility] Last Admin: 05/08/20 08:43 Dose: 200 mls/hr Morphine Sulfate (Morphine) 1 mg IVPUSH Q4H PRN PRN Reason: Pain (severe 7-10) Last Admin: 05/08/20 08:48 Dose: 1 mg Nicotine (Habitrol) 14 mg TRDERM DAILY [facility] Last Admin: 05/08/20 08:45 Dose: 14 mg Ondansetron HCl (Zofran) 4 mg IVPUSH Q4H PRN PRN Reason: Nausea/Vomiting Sodium Chloride (Saline Flush) 10 ml FLUSH ASDIRECTED PRN PRN Reason: Keep Vein Open Sodium Chloride (Saline Flush) 2.5 ml FLUSH ASDIRECTED PRN PRN Reason: Keep Vein Open Discontinued Medications Hydromorphone HCl (Dilaudid) 1 mg IVPUSH ONETIME ONE Stop: 05/08/20 00:12 Last Admin: 05/08/20 00:23 Dose: 1 mg Sodium Chloride (Normal Saline) 1,000 mls @ 999 mls/hr IV .Bolus ONE Stop: 05/07/20 21:58 Last Admin: 05/07/20 21:17 Dose: 999 mls/hr Iopamidol (Isovue-370 (76%)) 50 ml IV ONETIME STA Stop: 05/07/20 22:56 Last Admin: 05/07/20 22:57 Dose: 50 ml Ketorolac Tromethamine (Toradol) 15 mg IVPUSH ONETIME ONE Stop: 05/07/20 20:59 Last Admin: 05/07/20 21:17 Dose: 15 mg Morphine Sulfate (Morphine) 1 mg IVPUSH Q4H PRN PRN Reason: Pain (severe 7-10) Stop: 05/09/20 01:16 Nicotine (Habitrol) 21 mg TRDERM ONETIME ONE Stop: 05/08/20 00:12 Last Admin: 05/08/20 00:23 Dose: 21 mg Ondansetron HCl (Zofran) 4 mg IVPUSH ONETIME ONE Stop: 05/08/20 00:12 Last Admin: 05/08/20 00:26 Dose: 4 mg Sepsis Event Note - Evaluation Sepsis Screening Result: Sepsis Risk - Focused Exam Vital Signs: Vital Signs Temp Pulse Resp BP Pulse Ox Pulse Ox 05/08/20 08:31 100.6 F 110 H 22 H 130/86 90 L 05/08/20 05:45 99.1 F 104 H 16 123/74 96 05/08/20 01:35 97.6 F 18 136/70 98 05/08/20 01:15 98 98 Date Exam was Performed: 05/08/20 Time Exam was Performed: 17:46 - Plan Plan:: Assessment: 1. Multiple Masses/LAD concerning for Lymphoma 2. Left shoulder pain w. negative Troponin 3. Tachycardia 4. Microcytic anemia Plan Admit to obs. Full code. I/O's per routine. DVT: heparin 1. Discussed findings of CTA w. patient; LAD concnerning for Lymphoma however definitive diagnosis will require biopsy proven Neoplasm; will require follow up with IR possibly in [place] for this. Pain could possibly be from mass effect; however tachycardia is aslos concerning and an Echocardiogram may be in order. Will consider other intervention as needed.
[2020-05-09] MEDS: Morphine 2 MG/ML Syringe IVPUSH PRN (02:14)
[2020-05-09] MEDS ORDERED: HYDROmorphone 1 MG/ML Syringe ONE (05:01)
[2020-05-09 08:06] LABS: BLOOD UREA NITROGEN,BUN 6 mg/dL (7.0-18.0); CARBON DIOXIDE,CO2 30.5 mmol/L (21.0-32.0); CHLORIDE,CL 102 mmol/L (98-107); GLUCOSE RANDOM 109 mg/dL (74-106); POTASSIUM,K 3.9 mmol/L (3.5-5.1); SODIUM,NA 139 mmol/L (136-148)
[2020-05-09] MEDS: Pantoprazole 40 MG in Sodium Chloride 0.9% 10 ML IV SCH (08:36)
[2020-05-09] MEDS: Nicotine 14 MG/24 Hr Patch TRDERM SCH (08:39)
--- NOTE | 2020-05-09 08:50 | PCM.DCSUM1 ---
Discharge Summary - Hospital Course Free Text/Narrative:: Patient is a generally healthy 34 old male presenting to [facility] with acute left upper back and shoulder pain+ shortness of breath; this began 1 to 2 hours prior to arrival. 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 Denies any fevers, chills, body aches, nausea, vomiting, constipation. Does endorse a 1 to 2 pack/day tobacco habit for greater than 10 years. ED course found to be tachycardic with rate of 1 0-1 30; received 1 L bolus fluid and due to increasing dyspnea a d-dimer was checked. Elevated d-dimer ....CTA showed large mediastinal lymphadenopathy, multiple pulmonary masses and right adnexal adenopathy; troponin however negative. Hospital course: Physical examination yielded a large mass in right axillary region; patient states it is been there for couple of days; did not think much about it. Pain and tenderness however located over the bony prominences over left shoulder left scapula. Discussed results with patient suggesting possible concerns for lymphoma. UA was negative no other acute signs of infection appreciated despite leukocytosis. Tachycardia resolved. Pain control achieved with morphine and oxycodone. (Most likely B-symptoms; but no acute weight loss, night sweats etc) Discharged with oxycodone 5 mg 3 times daily x4 days. Surgery referral placed for excisional biopsy of right axiliary region. Will send for pathology report and possible need for hematology oncology f/u. Follow-up PCP also scheduled for next week. Patient discharged in stable condition. Discussed results of CT scan and need for biopsy and further work-up. Patient understood plan all questions answered. Return to ED PRN if needed. - Discharge Data Discharge Date: 05/09/20 Discharge Disposition: Home, Self-Care 01 Condition: Stable - Referral to Home Health Date of Face to Face Encounter: 05/09/20 Primary Care Physician: PCP None - Patient Instructions Diet: Heart Healthy Diet Notify Provider of: Fever, Increased Pain, Nausea and/or Vomiting - Discharge Plan *PRESCRIPTION DRUG MONITORING PROGRAM REVIEWED*: Not Applicable *COPY OF PRESCRIPTION DRUG MONITORING REPORT IN PATIENT RENETTA: Not Applicable Prescriptions/Med Rec: oxyCODONE 5 mg PO Q8H PRN 4 Days #12 tab PRN Reason: Pain Home Medications: Home Meds oxyCODONE 5 mg PO Q8H PRN 4 Days #12 tab 05/09/20 [Rx] Patient Handouts: Oxycodone tablets or capsules Referrals: Nehal De La Vega MD [Physician] - 05/11/20 9:30 am (Arrive 15 minutes early with a photo ID, insurance card, and a mask. This appointment was made to get a biopsy of the axillary area. ) Itzel Toribio MD [Resident] - 05/15/20 3:00 pm (Arrive 15 minutes early with a photo ID, insurance card, and a mask if you have one. ) - Discharge Summary/Plan Comment DC Time >30 min.: No - Patient Data Vitals - Most Recent: Last Vital Signs Temp 97.4 F 05/09/20 07:20 Pulse 96 05/09/20 07:20 Resp 20 05/09/20 07:20 BP 131/84 05/09/20 07:20 Pulse Ox 96 05/09/20 07:20 Weight - Most Recent: 77.337 kg I&O - Last 24 hours: Intake & Output 05/08/20 05/09/20 05/09/20 22:59 06:59 14:59 Intake Total 2533 2955 Output Total 900 Balance 1633 2955 Lab Results - Last 24 hrs: Laboratory Results - last 24 hr 05/08/20 05/09/20 05/09/20 Range/Units 11:08 05:10 05:11 WBC 13.30 H (4.0-11.0) K/uL RBC 4.40 L (4.50-5.90) M/uL Hgb 10.0 L (13.0-17.0) g/dL Hct 33.5 L (38.0-50.0) % MCV 76.1 L (80.0-98.0) fL MCH 22.7 L (27.0-32.0) pg MCHC 29.9 L (31.0-37.0) g/dL RDW Std Deviation 43.3 (28.0-62.0) fl RDW Coeff of Carol 16 H (11.0-15.0) % Plt Count 436 H (150-400) K/uL MPV 9.60 (7.40-12.00) fL Neut % (Auto) 73.8 (48.0-80.0) % Lymph % (Auto) 15.4 L (16.0-40.0) % Casey % (Auto) 9.2 (0.0-15.0) % Eos % (Auto) 1.4 (0.0-7.0) % Baso % (Auto) 0.2 (0.0-1.5) % Neut # (Auto) 9.8 H (1.4-5.7) K/uL Lymph # (Auto) 2.1 (0.6-2.4) K/uL Casey # (Auto) 1.2 H (0.0-0.8) K/uL Eos # (Auto) 0.2 (0.0-0.7) K/uL Baso # (Auto) 0.0 (0.0-0.1) K/uL Nucleated RBC % 0.0 /100WBC Nucleated RBCs # 0 K/uL Sodium 139 (136-148) mmol/L Potassium 3.9 (3.5-5.1) mmol/L Chloride 102 (98-107) mmol/L Carbon Dioxide 30.5 (21.0-32.0) mmol/L BUN 6 L (7.0-18.0) mg/dL Creatinine 0.9 (0.8-1.3) mg/dL Est Cr Clr Drug Dosing 111.89 mL/min Estimated GFR (MDRD) > 60.0 ml/min Glucose 109 H (74-106) mg/dL Calcium 8.4 L (8.5-10.1) mg/dL Urine Color YELLOW Urine Appearance CLEAR Urine pH 6.5 (5.0-8.0) Ur Specific [place] 1.015 (1.001-1.035) Urine Protein NEGATIVE (NEGATIVE) mg/dL Urine Glucose (UA) NEGATIVE (NEGATIVE) mg/dL Urine Ketones NEGATIVE (NEGATIVE) mg/dL Urine Occult Blood NEGATIVE (NEGATIVE) Urine Nitrite NEGATIVE (NEGATIVE) Urine Bilirubin NEGATIVE (NEGATIVE) Urine Urobilinogen 2.0 H (<2.0) EU/dL Ur Leukocyte Esterase NEGATIVE (NEGATIVE) Urine RBC NONE SEEN (0-2/HPF) Urine WBC NONE SEEN (0-5/HPF) Ur Epithelial Cells RARE (NONE-FEW) Urine Bacteria NOT SEEN (NEGATIVE) Med Orders - Current: Current Medications Albuterol/Ipratropium (Duoneb 3.0-0.5 Mg/3 Ml) 3 ml NEB Q4HRRT PRN PRN Reason: Shortness Of Breath/wheezing Enoxaparin Sodium (Lovenox) 40 mg SUBCUT Q24H [facility] Last Admin: 05/08/20 06:36 Dose: 40 mg Documented by: Lactated Ringer's (Ringers, Lactated) 1,000 mls @ 125 mls/hr IV ASDIRECTED [facility] Last Admin: 05/08/20 11:09 Dose: 125 mls/hr Documented by: Pantoprazole Sodium 40 mg/ (Sodium Chloride) 10 mls @ 200 mls/hr IV Q12H [facility] Last Admin: 05/09/20 08:36 Dose: 200 mls/hr Documented by: Morphine Sulfate (Morphine) 1 mg IVPUSH Q4H PRN PRN Reason: Pain (severe 7-10) Last Admin: 05/09/20 02:14 Dose: 1 mg Documented by: Nicotine (Habitrol) 14 mg TRDERM DAILY [facility] Last Admin: 05/09/20 08:39 Dose: 14 mg Documented by: Ondansetron HCl (Zofran) 4 mg IVPUSH Q4H PRN PRN Reason: Nausea/Vomiting Sodium Chloride (Saline Flush) 10 ml FLUSH ASDIRECTED PRN PRN Reason: Keep Vein Open Sodium Chloride (Saline Flush) 2.5 ml FLUSH ASDIRECTED PRN PRN Reason: Keep Vein Open Discontinued Medications Hydromorphone HCl (Dilaudid) 1 mg IVPUSH ONETIME ONE Stop: 05/08/20 00:12 Last Admin: 05/08/20 00:23 Dose: 1 mg Documented by: Hydromorphone HCl (Dilaudid) Confirm Administered Dose 1 mg .ROUTE .STK-MED ONE Stop: 05/09/20 05:02 Sodium Chloride (Normal Saline) 1,000 mls @ 999 mls/hr IV .Bolus ONE Stop: 05/07/20 21:58 Last Admin: 05/07/20 21:17 Dose: 999 mls/hr Documented by: Iopamidol (Isovue-370 (76%)) 50 ml IV ONETIME STA Stop: 05/07/20 22:56 Last Admin: 05/07/20 22:57 Dose: 50 ml Documented by: Ketorolac Tromethamine (Toradol) 15 mg IVPUSH ONETIME ONE Stop: 05/07/20 20:59 Last Admin: 05/07/20 21:17 Dose: 15 mg Documented by: Morphine Sulfate (Morphine) 1 mg IVPUSH Q4H PRN PRN Reason: Pain (severe 7-10) Stop: 05/09/20 01:16 Nicotine (Habitrol) 21 mg TRDERM ONETIME ONE Stop: 05/08/20 00:12 Last Admin: 05/08/20 00:23 Dose: 21 mg Documented by: Ondansetron HCl (Zofran) 4 mg IVPUSH ONETIME ONE Stop: 05/08/20 00:12 Last Admin: 05/08/20 00:26 Dose: 4 mg Documented by:
[2020-05-09] MEDS ORDERED: oxyCODONE 5 MG Tab PO PRN (10:48)
== END 2020-05-09 12:40 | disposition home or self-care (01) ==
LOC: MW.ED 20:38 → MW.MS 05-08 00:28
PROVIDERS: ADMIT Student in an Organized Health Care Education/Training Program; ATTEND Student in an Organized Health Care Education/Training Program
DX: R00.0 Tachycardia, unspecified (principal); R06.02 Shortness of breath; M54.6 Pain in thoracic spine; M25.512 Pain in left shoulder; F17.210 Nicotine dependence, cigarettes, uncomplicated; D50.9 Iron deficiency anemia, unspecified; R91.8 Other nonspecific abnormal finding of lung field; R79.1 Abnormal coagulation profile; R59.0 Localized enlarged lymph nodes
CPT/HCPCS: 36415; 71275; 80048; 80053; 81001; 83735; 83880; 84100; 84484; 85025; 85379; 85610; 93005; 93306; 96361; 96372; 96374; 96375; 96376; 99285; A9270; C9113; G0378; J1170; J1650; J1885; J2270; J2405; J7030; J7050; J7120; Q9967

== ENCOUNTER 2020-05-17 08:03 | Day surgery (SDC) | payer SELFPAY ==
[~2020-05-17 08:03] MED LIST: Bupivacaine 0.5% 30 ML SDV ONE; Lactated Ringers 1,000 ML IV SCH; Lidocaine 2% 5 ML SDV ONE; Midazolam 1 MG/ML 2 ML SDV ONE; Ondansetron 4 MG/2 ML SDV ONE; Propofol 200 MG/20 ML SDV ONE; Sodium Chloride 0.9% 10 ML SDV IV PRN; Sodium Chloride 0.9% 10 ML Syringe FLUSH PRN; Sodium Chloride 0.9% 2.5 ML Syringe FLUSH PRN; ceFAZolin 2 GM in Premix Bag 1 BAG IV ONE; fentaNYL 100 MCG/2 ML SDV ONE
--- NOTE | 2020-05-17 09:00 | CR ---
Chest: 2 views of the chest were obtained. Comparison: No prior chest x-ray is available, previous CT chest of 05/07/20 is available. Multiple pulmonary masses are seen. No pleural effusions are noted. Heart is enlarged. Upper mediastinum is within normal limits. Bony structure shows a mild anterior wedge deformity at the thoracolumbar junction which is felt to be old. Impression: 1. Multiple pulmonary masses. 2. Nothing acute is otherwise seen. Diagnostic code #9 This report was dictated in MDT
[2020-05-17 09:06] LABS: BLOOD UREA NITROGEN,BUN 11 mg/dL (7.0-18.0); CARBON DIOXIDE,CO2 28.8 mmol/L (21.0-32.0); CHLORIDE,CL 102 mmol/L (98-107); GLUCOSE RANDOM 104 mg/dL (74-106); POTASSIUM,K 4.3 mmol/L (3.5-5.1); SODIUM,NA 141 mmol/L (136-148)
[2020-05-17] MEDS ORDERED: Ketamine 500 mg/10 ML MDV ONE (09:45)
[2020-05-17] MEDS ORDERED: Propofol 200 MG/20 ML SDV ONE (09:45)
[2020-05-17] MEDS ORDERED: Bupivacaine 0.5% 10 ML SDV ONE (10:19)
[2020-05-17] MEDS ORDERED: ceFAZolin/Dextrose,Iso-Osmotic 2 GM/50 ML Duplex Bag IV ONE (10:39)
[2020-05-17] MEDS ORDERED: HYDROmorphone 2 MG/ML Syringe ONE (10:41)
--- NOTE | 2020-05-17 11:15 | PCM.OPNOTE ---
- General Post-Op/Procedure Note Date of Surgery/Procedure: 05/17/20 Operative Procedure(s): Excision left shoulder mass Findings: 2.5 x 2.5 x 2 cm mass on the lateral left shoulder in the subcutaneous tissues Pre Op Diagnosis: Left shoulder mass Post-Op Diagnosis: same Anesthesia Technique: Local, MAC Primary Surgeon: Nehal De La Vega Condition: Good
--- NOTE | 2020-05-17 11:31 | PCM.POSTAN ---
POST ANESTHESIA ASSESSMENT - MENTAL STATUS Mental Status: Alert, Oriented - VITAL SIGNS Vital Signs: Last Vital Signs Temp 36.7 C 05/17/20 11:14 Pulse 109 H 05/17/20 11:24 Resp 15 05/17/20 11:24 BP 113/54 L 05/17/20 11:24 Pulse Ox 96 05/17/20 11:24 - RESPIRATORY Respiratory Status: Respiratory Rate WNL, Airway Patent, O2 Saturation Stable - CARDIOVASCULAR CV Status: Pulse Rate WNL, Blood Pressure Stable - GASTROINTESTINAL GI Status: No Symptoms - PAIN Pain Score: 2 - POST OP HYDRATION Hydration Status: Adequate & Stable - OBSERVATIONS Free Text/Narrative:: No anesthesia problems
--- NOTE | 2020-05-17 12:18 | PCM48HPAN ---
Post Anesthesia Note - EVALUATION WITHIN 48HRS OF ANESTHETIC Vital Signs in Normal Range: Yes Patient Participated in Evaluation: Yes Respiratory Function Stable: Yes Airway Patent: Yes Cardiovascular Function Stable: Yes Hydration Status Stable: Yes Pain Control Satisfactory: Yes Nausea and Vomiting Control Satisfactory: Yes Mental Status Recovered: Yes Vital Signs: Last Vital Signs Temp 36.7 C 05/17/20 11:14 Pulse 109 H 05/17/20 11:24 Resp 15 05/17/20 11:24 BP 113/54 L 05/17/20 11:24 Pulse Ox 96 05/17/20 11:24 - COMMENTS/OBSERVATIONS Free Text/Narrative:: Doing well.
--- NOTE | 2020-05-17 21:04 | OR ---
SURGEON: NEHAL DE LA VEGA MD DATE OF PROCEDURE: 05/17/2020 PREOPERATIVE DIAGNOSIS: Left shoulder mass. POSTOPERATIVE DIAGNOSIS: Left shoulder mass. PROCEDURE PERFORMED: Excisional biopsy of left shoulder mass. PRIMARY SURGEON: Nehal De La Vega MD ANESTHESIA: MAC, local. FLUIDS: 700 mL of crystalloid. ESTIMATED BLOOD LOSS: 3 mL. FINDINGS: 2.5 x 2.5 x 2 cm left shoulder mass that appeared to be a lymph node. COMPLICATIONS: None. INDICATIONS: The patient is a 34-year-old male who presented to the emergency room 2 weeks ago with increasing shortness of breath. His past medical history was significant for an enlarging mass in his right axilla, which he was afraid to have examined. The patient was found to have multiple pulmonary lesions as well as scattered lymphadenopathy and a 9 cm right axillary mass. The patient was also found to have a subcutaneous lesion over the lateral supraclavicular area on the left shoulder. The decision was made to perform an excisional biopsy of this to obtain a diagnosis. We discussed the procedure, expected perioperative course, and the risks. He verbalized understanding and wishes to proceed. PROCEDURE IN DETAIL: The patient was brought into the OR and placed on the OR table in a right lateral decubitus position. A time-out was completed verifying the patient's name, age, date of , allergies, and procedure to be performed. Monitored anesthesia care was induced. The left shoulder was prepped and draped in usual standard fashion. I anesthetized the area around the left shoulder mass with 0.5% Marcaine plain. A 4 cm incision was made over the top of this mass using a 10 blade. Cautery was used to dissect down to the level of subcutaneous fat. I grasped the mass with an Allis clamp, and using Metzenbaum scissors, I dissected it free from the surrounding tissue. Underneath the lesion, I came across what appeared to be a lymphatic structure. This was clipped and ligated sharply with Metzenbaum scissors. I then encountered a vascular structure close to the lymphatic structure. This was doubly clipped and ligated. The mass was then removed and placed on the back table. It measured 2.5 x 2.5 x 2 cm in size. There were no margins associated with this mass. It was sent to pathology, labeled as left shoulder mass. The cautery was used to achieve hemostasis within the wound. I then closed the wound with interrupted layers of 3-0 Vicryl sutures. The skin was closed with running 4-0 Monocryl stitch. Steri-Strips and sterile dressings were applied. The patient tolerated the procedure well and was transferred to the PACU in stable condition. IVANA BRUNO /[id number]
== END 2020-05-17 12:20 | disposition home or self-care (01) ==
LOC: MW.SDS 08:03
PROVIDERS: ATTEND Surgery
DX: C43.62 Malignant melanoma of left upper limb, including shoulder (principal); R91.8 Other nonspecific abnormal finding of lung field; Z11.59 Encounter for screening for other viral diseases; R59.0 Localized enlarged lymph nodes; F17.200 Nicotine dependence, unspecified, uncomplicated
CPT/HCPCS: 11603; 12032; 36415; 71046; 80053; 85027; 87635; 88307; J0690; J1170; J2001; J2250; J2405; J2704; J3010; J3490; J7120; 00400; U0002

== ENCOUNTER 2020-05-19 10:32 | Observation (INO) | payer SELFPAY ==
[2020-05-19] MEDS ORDERED: Sodium Chloride 0.9% 10 ML Syringe FLUSH PRN ×2 (11:16→11:30)
[2020-05-19] MEDS ORDERED: Ketorolac 15 MG/ML SDV IVPUSH ONE (11:16)
[2020-05-19] MEDS ORDERED: Ondansetron 4 MG/2 ML SDV IVPUSH ONE (11:16)
[2020-05-19] MEDS ORDERED: Sodium Chloride 0.9% 2.5 ML Syringe FLUSH PRN ×2 (11:16→11:30)
[2020-05-19] MEDS ORDERED: Sodium Chloride 0.9% 1,000 ML IV ONE ×3 (11:30→18:00)
[2020-05-19 11:54] LABS: BLOOD UREA NITROGEN,BUN 14 mg/dL (7.0-18.0); CARBON DIOXIDE,CO2 27.2 mmol/L (21.0-32.0); CHLORIDE,CL 95 mmol/L (98-107); GLUCOSE RANDOM 144 mg/dL (74-106); POTASSIUM,K 4.8 mmol/L (3.5-5.1); SODIUM,NA 132 mmol/L (136-148)
--- NOTE | 2020-05-19 12:02 | EDM.PDOC ---
ED HPI GENERAL MEDICAL PROBLEM - General Chief Complaint: Respiratory Problem Stated Complaint: DIFFICULTY BREATHING SINCE SURGERY Time Seen by Provider: 05/19/20 10:54 - History of Present Illness INITIAL COMMENTS - FREE TEXT/NARRATIVE: History of present illness: Presents with shortness of breath and trouble breathing that is been present early this morning. He states he had a biopsy of a lesion on his back the other day but otherwise is healthy. However upon review of his recent medical charts it appears that he is in the middle of a work-up for multiple pulmonary massive lesions and pulmonary adenopathy consistent with metastatic cancer likely to be lymphoma. There are no results back on his biopsies. He had a recent chest x- ray and CTA demonstrating these nodules no pulmonary embolus was noted on 07 May. Patient denies any fever he did have one episode of nausea and vomiting he is having trouble breathing and is tachycardic. The breathing is worse when he exerts himself. He denies any cough although he is noted on exam to be having a dry cough intermittently. Any exposures. Smoking Review of systems: As per history of present illness and below otherwise all systems reviewed and negative. Past medical history: As per history of present illness and as reviewed below otherwise noncontributory. Surgical history: As per history of present illness and as reviewed below otherwise noncontributo ry. Social history: No reported history of drug or alcohol abuse. Family history: As per history of present illness and as reviewed below otherwise noncontributory. Physical exam: HEENT: Atraumatic, normocephalic, pupils reactive, negative for conjunctival pallor or scleral icterus, mucous membranes moist, throat clear, neck supple, nontender, trachea midline. Lungs: Breath sounds but scattered rhonchi are present breath sounds equal bilaterally, chest nontender. Heart: S1S2, regular, negative for clicks, rubs, or JVD. Cardiac in the 130s Abdomen: Soft, nondistended, nontender. Negative for masses or hepatosplenomegaly. Negative for costovertebral tenderness. Pelvis: Stable nontender. Genitourinary: Deferred. Rectal: Deferred. Extremities: Atraumatic, negative for cords or calf pain. Neurovascular unremarkable. Neuro: Awake, alert, oriented. Cranial nerves II through XII unremarkable. Cerebellum unremarkable. Motor and sensory unremarkable throughout. Exam nonfocal. Diagnostics: [] Therapeutics: [] Impression: Certain for pneumonia versus viral infection [] Plan: Will be evaluated for sepsis COVID-19 pneumothorax and reassessed [] Definitive disposition and diagnosis as appropriate pending reevaluation and review of above. L shoulder/back Pain Score (Numeric/FACES): 5 - Related Data Allergies Allergy/AdvReac Type Severity Reaction Status Date / Time No Known Allergies Allergy Verified 05/19/20 11:07 Home Meds: Home Meds Pain Med 05/19/20 [History] Past Medical History - Past Health History Medical/Surgical History: Denies Medical/Surgical History HEENT History: Reports: None Cardiovascular History: Reports: None Respiratory History: Reports: None Gastrointestinal History: Reports: None Genitourinary History: Reports: None Musculoskeletal History: Reports: Fracture Other Musculoskeletal History: hx of fx left wrist, right ring finger, and both pinky toes Neurological History: Reports: None Psychiatric History: Reports: None Endocrine/Metabolic History: Reports: None Hematologic History: Reports: None Immunologic History: Reports: None Oncologic (Cancer) History: Reports: Other (See Below) Other Oncologic History: pt states, whatever cancer I currently have Dermatologic History: Reports: None - Infectious Disease History Infectious Disease History: Reports: Chicken Pox - Past Surgical History Head Surgeries/Procedures: Reports: None HEENT Surgical History: Reports: None Cardiovascular Surgical History: Reports: None Respiratory Surgical History: Reports: None GI Surgical History: Reports: None Male Surgical History: Reports: None Endocrine Surgical History: Reports: None Neurological Surgical History: Reports: None Musculoskeletal Surgical History: Reports: ORIF Other Musculoskeletal Surgeries/Procedures:: ORIF left wrist- has plate and screws Oncologic Surgical History: Reports: None Dermatological Surgical History: Reports: None Social & Family History - Family History Family Medical History: Noncontributory Cardiac: Reports: IN OBGYN: Reports: Oncologic: Reports: Breast - Caffeine Use Caffeine Use: Reports: Coffee, Energy Drinks, Soda, Tea ED ROS GENERAL - Review of Systems Review Of Systems: See Below ED EXAM, GENERAL - Physical Exam Exam: See Below EKG INTERPRETATION EKG Interpretation Comments: EKG normal sinus rhythm sinus tachycardia 132 bpm right axis there is some nonspecific ST-T changes no gordo ischemia read and interpreted by me Course - Vital Signs Last Recorded V/S: Last Vital Signs Temp 36.3 C 05/19/20 11:15 Pulse 129 H 05/19/20 12:00 Resp 20 05/19/20 12:00 BP 108/66 05/19/20 12:00 Pulse Ox 94 L 05/19/20 12:00 - Orders/Labs/Meds Orders: Active Orders 24 hr Category Date Time Status Cardiac Monitoring [RC] . DIRECTED Care 05/19/20 11:16 Active Pulse Oximetry [RC] ASDIRECTED Care 05/19/20 11:16 Active CULTURE BLOOD [BC] Stat Lab 05/19/20 11:55 Received CULTURE BLOOD [BC] Stat Lab 05/19/20 12:05 Received UA W/MICROSCOPIC [URIN] Stat Lab 05/19/20 11:30 Ordered Sodium Chloride 0.9% [Saline Flush] Med 05/19/20 11:16 Active 10 ml FLUSH ASDIRECTED PRN Sodium Chloride 0.9% [Saline Flush] Med 05/19/20 11:30 Active 10 ml FLUSH ASDIRECTED PRN Sodium Chloride 0.9% [Saline Flush] Med 05/19/20 11:16 Active 2.5 ml FLUSH ASDIRECTED PRN Sodium Chloride 0.9% [Saline Flush] Med 05/19/20 11:30 Active 2.5 ml FLUSH ASDIRECTED PRN Blood Culture x2 Reflex Set [OM.PC] Stat Ot 05/19/20 11:30 Ordered Saline Lock Insert [OM.PC] Stat Ot 05/19/20 11:16 Ordered Saline Lock Insert [OM.PC] Stat Ot 05/19/20 11:30 Ordered Severe Sepsis Onset Time [OM.PC] Stat Ot 05/19/20 11:30 Ordered Medication Orders Acetaminophen (Tylenol Extra Strength) 500 mg PO Q4H PRN PRN Reason: Fever Heparin Sodium (Porcine) (Heparin Sodium) 5,000 units SUBCUT Q12H [facility] Sodium Chloride (Normal Saline) 1,000 mls @ 120 mls/hr IV CONTINUOUS ONE Stop: 05/19/20 23:16 Azithromycin 500 mg/ Sodium (Chloride) 250 mls @ 250 mls/hr IV ONETIME ONE Stop: 05/19/20 15:59 Piperacillin Sod/Tazobactam (Sod 3.375 gm/ Sodium Chloride) 50 mls @ 100 mls/hr IV Q6H [facility] Sodium Chloride (Normal Saline) 1,000 mls @ 999 mls/hr IV BOLUS ONE Stop: 05/19/20 19:00 Azithromycin 250 mg/ Sodium (Chloride) 250 mls @ 250 mls/hr IV Q24H [facility] Ibuprofen (Motrin) 200 mg PO Q4H PRN PRN Reason: Pain Nicotine (Habitrol) 14 mg TRDERM DAILY [facility] Omeprazole (Omeprazole) 20 mg PO BIDAC [facility] Oxycodone HCl (Oxycodone) 5 mg PO Q6H PRN PRN Reason: Pain Sodium Chloride (Saline Flush) 10 ml FLUSH ASDIRECTED PRN PRN Reason: Keep Vein Open Sodium Chloride (Saline Flush) 2.5 ml FLUSH ASDIRECTED PRN PRN Reason: Keep Vein Open Sodium Chloride (Saline Flush) 10 ml FLUSH ASDIRECTED PRN PRN Reason: Keep Vein Open Sodium Chloride (Saline Flush) 2.5 ml FLUSH ASDIRECTED PRN PRN Reason: Keep Vein Open Labs: Laboratory Tests 05/19/20 05/19/20 05/19/20 Range/Units 11:28 11:28 11:28 WBC 26.80 H (4.0-11.0) K/uL RBC 4.09 L (4.50-5.90) M/uL Hgb 9.2 L (13.0-17.0) g/dL Hct 30.2 L (38.0-50.0) % MCV 73.8 L (80.0-98.0) fL MCH 22.5 L (27.0-32.0) pg MCHC 30.5 L (31.0-37.0) g/dL RDW Std Deviation 42.7 (28.0-62.0) fl RDW Coeff of Carol 16 H (11.0-15.0) % Plt Count 456 H (150-400) K/uL MPV 9.50 (7.40-12.00) fL Neut % (Auto) 89.3 H (48.0-80.0) % Lymph % (Auto) 4.1 L (16.0-40.0) % [place] % (Auto) 6.5 (0.0-15.0) % Eos % (Auto) 0.0 (0.0-7.0) % Baso % (Auto) 0.1 (0.0-1.5) % Neut # (Auto) 23.9 H (1.4-5.7) K/uL Lymph # (Auto) 1.1 (0.6-2.4) K/uL [place] # (Auto) 1.7 H (0.0-0.8) K/uL Eos # (Auto) 0.0 (0.0-0.7) K/uL Baso # (Auto) 0.0 (0.0-0.1) K/uL Nucleated RBC % 0.0 /100WBC Nucleated RBCs # 0 K/uL Lactate 2.7 H* (0.20-2.00) mmol/L Sodium 132 L (136-148) mmol/L Potassium 4.8 (3.5-5.1) mmol/L Chloride 95 L (98-107) mmol/L Carbon Dioxide 27.2 (21.0-32.0) mmol/L BUN 14 (7.0-18.0) mg/dL Creatinine 1.2 (0.8-1.3) mg/dL Est Cr Clr Drug Dosing 83.92 mL/min Estimated GFR (MDRD) > 60.0 ml/min Glucose 144 H (74-106) mg/dL Calcium 8.7 (8.5-10.1) mg/dL Total Bilirubin 2.3 H (0.2-1.0) mg/dL AST 21 (15-37) IU/L ALT 31 (14-63) IU/L Alkaline Phosphatase 159 H (46-116) U/L Total Protein 7.3 (6.4-8.2) g/dL Albumin 2.8 L (3.4-5.0) g/dL Globulin 4.5 H (2.6-4.0) g/dL Albumin/Globulin Ratio 0.6 L (0.9-1.6) SARS Virus RNA (PCR) (NEGATIVE) 05/19/20 Range/Units 12:30 WBC (4.0-11.0) K/uL RBC (4.50-5.90) M/uL Hgb (13.0-17.0) g/dL Hct (38.0-50.0) % MCV (80.0-98.0) fL MCH (27.0-32.0) pg MCHC (31.0-37.0) g/dL RDW Std Deviation (28.0-62.0) fl RDW Coeff of Carol (11.0-15.0) % Plt Count (150-400) K/uL MPV (7.40-12.00) fL Neut % (Auto) (48.0-80.0) % Lymph % (Auto) (16.0-40.0) % [place] % (Auto) (0.0-15.0) % Eos % (Auto) (0.0-7.0) % Baso % (Auto) (0.0-1.5) % Neut # (Auto) (1.4-5.7) K/uL Lymph # (Auto) (0.6-2.4) K/uL [place] # (Auto) (0.0-0.8) K/uL Eos # (Auto) (0.0-0.7) K/uL Baso # (Auto) (0.0-0.1) K/uL Nucleated RBC % /100WBC Nucleated RBCs # K/uL Lactate (0.20-2.00) mmol/L Sodium (136-148) mmol/L Potassium (3.5-5.1) mmol/L Chloride (98-107) mmol/L Carbon Dioxide (21.0-32.0) mmol/L BUN (7.0-18.0) mg/dL Creatinine (0.8-1.3) mg/dL Est Cr Clr Drug Dosing mL/min Estimated GFR (MDRD) ml/min Glucose (74-106) mg/dL Calcium (8.5-10.1) mg/dL Total Bilirubin (0.2-1.0) mg/dL AST (15-37) IU/L ALT (14-63) IU/L Alkaline Phosphatase (46-116) U/L Total Protein (6.4-8.2) g/dL Albumin (3.4-5.0) g/dL Globulin (2.6-4.0) g/dL Albumin/Globulin Ratio (0.9-1.6) SARS Virus RNA (PCR) NEGATIVE (NEGATIVE) Meds: Medications Generic Name Dose Route Start Last Admin Trade Name Freq PRN Reason Stop Dose Admin Acetaminophen 500 mg 05/19/20 15:03 Tylenol Extra Strength PO Q4H PRN Fever Heparin Sodium (Porcine) 5,000 units 05/19/20 15:15 Heparin Sodium SUBCUT Q12H [facility] Sodium Chloride 1,000 mls @ 120 mls/hr 05/19/20 14:57 Normal Saline IV 05/19/20 23:16 CONTINUOUS ONE Azithromycin 500 mg/ Sodium 250 mls @ 250 mls/hr 05/19/20 15:00 Chloride IV 05/19/20 15:59 ONETIME ONE Piperacillin Sod/Tazobactam 50 mls @ 100 mls/hr 05/19/20 19:00 Sod 3.375 gm/ Sodium Chloride IV Q6H [facility] Sodium Chloride 1,000 mls @ 999 mls/hr 05/19/20 18:00 Normal Saline IV 05/19/20 19:00 BOLUS ONE Azithromycin 250 mg/ Sodium 250 mls @ 250 mls/hr 05/20/20 15:00 Chloride IV Q24H [facility] Ibuprofen 200 mg 05/19/20 15:03 Motrin PO Q4H PRN Pain Nicotine 14 mg 05/19/20 15:30 Habitrol TRDERM DAILY [facility] Omeprazole 20 mg 05/19/20 17:00 Omeprazole PO BIDAC [facility] Oxycodone HCl 5 mg 05/19/20 15:02 Oxycodone PO Q6H PRN Pain Sodium Chloride 10 ml 05/19/20 11:16 Saline Flush FLUSH ASDIRECTED PRN Keep Vein Open Sodium Chloride 2.5 ml 05/19/20 11:16 Saline Flush FLUSH ASDIRECTED PRN Keep Vein Open Sodium Chloride 10 ml 05/19/20 11:30 Saline Flush FLUSH ASDIRECTED PRN Keep Vein Open Sodium Chloride 2.5 ml 05/19/20 11:30 Saline Flush FLUSH ASDIRECTED PRN Keep Vein Open Discontinued Medications Generic Name Dose Route Start Last Admin Trade Name Freq PRN Reason Stop Dose Admin Azithromycin 250 mg 05/20/20 15:15 Zithromax IV Q24H [facility] Sodium Chloride 1,000 mls @ 999 mls/hr 05/19/20 11:30 05/19/20 11:41 Normal Saline IV 05/19/20 12:30 999 mls/hr .Bolus ONE Administration Piperacillin Sod/Tazobactam 50 mls @ 100 mls/hr 05/19/20 13:10 05/19/20 13:20 Sod 3.375 gm/ Sodium Chloride IV 05/19/20 13:39 100 mls/hr ONETIME ONE Administration Vancomycin HCl 1.5 gm/ Premix 300 mls @ 300 mls/hr 05/19/20 13:11 05/19/20 14:17 IV 05/19/20 13:12 300 mls/hr ONETIME ONE Administration Azithromycin 250 mg/ Sodium 250 mls @ 250 mls/hr 05/19/20 15:00 Chloride IV Q24H JEAN [facility]RE Ketorolac Tromethamine 30 mg 05/19/20 11:16 05/19/20 11:36 Toradol IVPUSH 05/19/20 11:17 30 mg ONETIME ONE Administration Ondansetron HCl 4 mg 05/19/20 11:16 05/19/20 11:35 Zofran IVPUSH 05/19/20 11:17 4 mg ONETIME ONE Administration Departure - Departure Time of Disposition: 14:30 Disposition: Refer to Observation Clinical Impression: Dyspnea, Sepsis - Discharge Information Sepsis Event Note (ED) - Evaluation Sepsis Screening Result: No Definite Risk - Focused Exam Vital Signs: Vital Signs Temp Pulse Resp BP Pulse Ox 05/19/20 12:00 129 H 20 108/66 94 L 05/19/20 11:45 129 H 20 107/59 L 94 L 05/19/20 11:30 134 H 21 H 117/65 95 05/19/20 11:15 36.3 C 133 H 21 H 121/62 95 05/19/20 11:04 36.2 C 136 H 20 120/75 96 - My Orders Last 24 Hours: My Active Orders 05/19/20 11:16 Cardiac Monitoring [RC] . DIRECTED Pulse Oximetry [RC] ASDIRECTED Sodium Chloride 0.9% [Saline Flush] 10 ml FLUSH ASDIRECTED PRN Sodium Chloride 0.9% [Saline Flush] 2.5 ml FLUSH ASDIRECTED PRN Saline Lock Insert [OM.PC] Stat 05/19/20 11:30 UA W/MICROSCOPIC [URIN] Stat Sodium Chloride 0.9% [Saline Flush] 10 ml FLUSH ASDIRECTED PRN Sodium Chloride 0.9% [Saline Flush] 2.5 ml FLUSH ASDIRECTED PRN Blood Culture x2 Reflex Set [OM.PC] Stat Saline Lock Insert [OM.PC] Stat Severe Sepsis Onset Time [OM.PC] Stat 05/19/20 11:55 CULTURE BLOOD [BC] Stat 05/19/20 12:05 CULTURE BLOOD [BC] Stat - Assessment/Plan Last 24 Hours: My Active Orders 05/19/20 11:16 Cardiac Monitoring [RC] . DIRECTED Pulse Oximetry [RC] ASDIRECTED Sodium Chloride 0.9% [Saline Flush] 10 ml FLUSH ASDIRECTED PRN Sodium Chloride 0.9% [Saline Flush] 2.5 ml FLUSH ASDIRECTED PRN Saline Lock Insert [OM.PC] Stat 05/19/20 11:30 UA W/MICROSCOPIC [URIN] Stat Sodium Chloride 0.9% [Saline Flush] 10 ml FLUSH ASDIRECTED PRN Sodium Chloride 0.9% [Saline Flush] 2.5 ml FLUSH ASDIRECTED PRN Blood Culture x2 Reflex Set [OM.PC] Stat Saline Lock Insert [OM.PC] Stat Severe Sepsis Onset Time [OM.PC] Stat 05/19/20 11:55 CULTURE BLOOD [BC] Stat 05/19/20 12:05 CULTURE BLOOD [BC] Stat
--- NOTE | 2020-05-19 12:11 | CR ---
INDICATION: SOB. TECHNIQUE: Upright portable AP image of the chest. COMPARISON: 05/17/2020. FINDINGS: Shallow inspiration in comparison to the previous examination. Large rounded masses in both lungs, as before. No obvious new pulmonary opacity to suggest atelectasis or pneumonia. No pleural effusion. Heart size stable and within normal limits. Pulmonary veins grossly normal in caliber. No significant bony abnormality. IMPRESSION: 1. Shallow inspiration in comparison the previous examination without clear evidence of new atelectasis or pneumonia. 2. Multiple large pulmonary masses, as before. Dictated by Raoul Orozco MD @ May 19 2020 12:04PM Signed by Dr. Raoul Orozco @ May 19 2020 12:10PM
[2020-05-19] MEDS ORDERED: Piperacillin/Tazobactam 3.375 GM in Sodium Chloride 0.9% 50 ML IV ONE (13:10)
[2020-05-19] MEDS ORDERED: Azithromycin 250 MG in Sodium Chloride 0.9% 250 ML IV SCH (15:00)
[2020-05-19] MEDS ORDERED: Azithromycin 500 MG in Sodium Chloride 0.9% 250 ML IV ONE (15:00)
[2020-05-19] MEDS ORDERED: Acetaminophen 500 MG Tab PO PRN (15:03)
--- NOTE | 2020-05-19 15:05 | PCM.HP.2 ---
H&P History of Present Illness - General Date of Service: 05/19/20 Admit Problem/Dx: Admission Diagnosis/Problem Admission Diagnosis/Problem Sepsis Source of Information: Patient History Limitations: Reports: No Limitations - History of Present Illness Initial Comments - Free Text/Narative: Patient is a 34 y.o smoker w. significant PMH of recent diagnosis of multiple pulmonary nodules and axillary mass s/p biopsy presenting this morning with concerns for SOB, mild tachycardia and vague chest discomfort. pt. this AM had a feeling's of his breath "being stuck" in his chest making it hard for him to breathe. Mentions taking his prescribed anti-inflammatory (unsure of name) and noticed symptoms thereafter. Of note pt .mentioned this feeling/sensation resolved at arrival to ED prior to any interventions. ED course: repeat CXR showed pulmonary/axillary mass but no interval change from May 07. 1 liter bolus of fluid provided and one dose of Zosyn also initiated secondary for concerns for post-obstructive CAP and elevated lactate +left shit w. increasing WBC pt. noted to have elevated lactate and is tachycardic COVID negative Bedside: patient at bedside states feeling better. Since previous admission pt. has been taking Percocet for pain with good relief Has been seen by Dr De La Vega of Surgery for core-needle biopsy of the left posterior shoulder mass; of which was read by pathology as most likely cancerous; specimen sent to [facility] for staging and for further details. PET scan performed as well: results pending ECHO: EF of 60-65% bORDERLINE DILATION OF LEFT ATRIUM rIGHT VENTRICULAR VOLUME OVERLOAD Patient states he would like to avoid transfer to [facility] at this time. NO other acute complaints at this time L shoulder/back Pain Score (Numeric/FACES): 5 - Related Data Allergies/Adverse Reactions: Allergies Allergy/AdvReac Type Severity Reaction Status Date / Time No Known Allergies Allergy Verified 05/19/20 11:07 Home Medications: Home Meds Pain Med 05/19/20 [History] Past Medical History - Past Health History Medical/Surgical History: Denies Medical/Surgical History HEENT History: Reports: None Cardiovascular History: Reports: None Respiratory History: Reports: None Gastrointestinal History: Reports: None Genitourinary History: Reports: None Musculoskeletal History: Reports: Fracture Other Musculoskeletal History: hx of fx left wrist, right ring finger, and both pinky toes Neurological History: Reports: None Psychiatric History: Reports: None Endocrine/Metabolic History: Reports: None Hematologic History: Reports: None Immunologic History: Reports: None Oncologic (Cancer) History: Reports: Other (See Below) Other Oncologic History: pt states, whatever cancer I currently have Dermatologic History: Reports: None - Infectious Disease History Infectious Disease History: Reports: Chicken Pox - Past Surgical History Head Surgeries/Procedures: Reports: None HEENT Surgical History: Reports: None Cardiovascular Surgical History: Reports: None Respiratory Surgical History: Reports: None GI Surgical History: Reports: None Male Surgical History: Reports: None Endocrine Surgical History: Reports: None Neurological Surgical History: Reports: None Musculoskeletal Surgical History: Reports: ORIF Other Musculoskeletal Surgeries/Procedures:: ORIF left wrist- has plate and screws Oncologic Surgical History: Reports: None Dermatological Surgical History: Reports: None Social & Family History - Family History Family Medical History: Noncontributory Cardiac: Reports: [place] OBGYN: Reports: Oncologic: Reports: Breast - Caffeine Use Caffeine Use: Reports: Coffee, Energy Drinks, Soda, Tea H&P Review of Systems - Review of Systems: Review Of Systems: See Below General: Denies: Fever, Chills, Malaise, Weakness, Fatigue, Night Sweats, Diaphoresis, Decreased Appetite, Weight Loss HEENT: Reports: No Symptoms Pulmonary: Reports: No Symptoms, Cough. Denies: Wheezing, Pleuritic Chest Pain Cardiovascular: Denies: Chest Pain, Palpitations, Dyspnea on Exertion, Orthopnea, Lightheadedness Gastrointestinal: Denies: Abdominal Pain, Constipation, Diarrhea, Decreased Appetite, Nausea Genitourinary: Reports: No Symptoms Musculoskeletal: Reports: No Symptoms Skin: Reports: No Symptoms Psychiatric: Reports: No Symptoms Neurological: Reports: No Symptoms Exam - Exam Exam: See Below - Vital Signs Vital Signs: Last Vital Signs Temp 97.3 F 05/19/20 11:15 Pulse 129 H 05/19/20 12:00 Resp 20 05/19/20 12:00 BP 108/66 05/19/20 12:00 Pulse Ox 94 L 05/19/20 12:00 Weight: 78.471 kg - Exam Quality Assessment: Supplemental Oxygen General: Alert, Oriented, Cooperative HEENT: EOMI, Hearing Intact Neck: Supple, Trachea Midline Lungs: Other Cardiovascular: Regular Rhythm, Tachycardia GI/Abdominal Exam: Soft, Non-Tender Back Exam: Normal Inspection Extremities: Normal Inspection, No Pedal Edema Skin: Warm Neuro Extensive - Mental Status: Alert, Oriented x3 Physical Exam Comments:: Right axilla: large mass noted in axilla; unchanged in size and caliber from previous admission on May 07 Mild Velcro-like sounds at times of lung auscultations; improves with deep breathing and cough No other discreet mass appreciated on exam Left upper back : - Patient Data Lab Results Last 24 hrs: Laboratory Results - last 24 hr 05/19/20 05/19/20 05/19/20 Range/Units 11:28 11:28 11:28 WBC 26.80 H (4.0-11.0) K/uL RBC 4.09 L (4.50-5.90) M/uL Hgb 9.2 L (13.0-17.0) g/dL Hct 30.2 L (38.0-50.0) % MCV 73.8 L (80.0-98.0) fL MCH 22.5 L (27.0-32.0) pg MCHC 30.5 L (31.0-37.0) g/dL RDW Std Deviation 42.7 (28.0-62.0) fl RDW Coeff of Carol 16 H (11.0-15.0) % Plt Count 456 H (150-400) K/uL MPV 9.50 (7.40-12.00) fL Neut % (Auto) 89.3 H (48.0-80.0) % Lymph % (Auto) 4.1 L (16.0-40.0) % [place] % (Auto) 6.5 (0.0-15.0) % Eos % (Auto) 0.0 (0.0-7.0) % Baso % (Auto) 0.1 (0.0-1.5) % Neut # (Auto) 23.9 H (1.4-5.7) K/uL Lymph # (Auto) 1.1 (0.6-2.4) K/uL [place] # (Auto) 1.7 H (0.0-0.8) K/uL Eos # (Auto) 0.0 (0.0-0.7) K/uL Baso # (Auto) 0.0 (0.0-0.1) K/uL Nucleated RBC % 0.0 /100WBC Nucleated RBCs # 0 K/uL Lactate 2.7 H* (0.20-2.00) mmol/L Sodium 132 L (136-148) mmol/L Potassium 4.8 (3.5-5.1) mmol/L Chloride 95 L (98-107) mmol/L Carbon Dioxide 27.2 (21.0-32.0) mmol/L BUN 14 (7.0-18.0) mg/dL Creatinine 1.2 (0.8-1.3) mg/dL Est Cr Clr Drug Dosing 83.92 mL/min Estimated GFR (MDRD) > 60.0 ml/min Glucose 144 H (74-106) mg/dL Calcium 8.7 (8.5-10.1) mg/dL Total Bilirubin 2.3 H (0.2-1.0) mg/dL AST 21 (15-37) IU/L ALT 31 (14-63) IU/L Alkaline Phosphatase 159 H (46-116) U/L Total Protein 7.3 (6.4-8.2) g/dL Albumin 2.8 L (3.4-5.0) g/dL Globulin 4.5 H (2.6-4.0) g/dL Albumin/Globulin Ratio 0.6 L (0.9-1.6) SARS Virus RNA (PCR) (NEGATIVE) 05/19/20 Range/Units 12:30 WBC (4.0-11.0) K/uL RBC (4.50-5.90) M/uL Hgb (13.0-17.0) g/dL Hct (38.0-50.0) % MCV (80.0-98.0) fL MCH (27.0-32.0) pg MCHC (31.0-37.0) g/dL RDW Std Deviation (28.0-62.0) fl RDW Coeff of Carol (11.0-15.0) % Plt Count (150-400) K/uL MPV (7.40-12.00) fL Neut % (Auto) (48.0-80.0) % Lymph % (Auto) (16.0-40.0) % [place] % (Auto) (0.0-15.0) % Eos % (Auto) (0.0-7.0) % Baso % (Auto) (0.0-1.5) % Neut # (Auto) (1.4-5.7) K/uL Lymph # (Auto) (0.6-2.4) K/uL [place] # (Auto) (0.0-0.8) K/uL Eos # (Auto) (0.0-0.7) K/uL Baso # (Auto) (0.0-0.1) K/uL Nucleated RBC % /100WBC Nucleated RBCs # K/uL Lactate (0.20-2.00) mmol/L Sodium (136-148) mmol/L Potassium (3.5-5.1) mmol/L Chloride (98-107) mmol/L Carbon Dioxide (21.0-32.0) mmol/L BUN (7.0-18.0) mg/dL Creatinine (0.8-1.3) mg/dL Est Cr Clr Drug Dosing mL/min Estimated GFR (MDRD) ml/min Glucose (74-106) mg/dL Calcium (8.5-10.1) mg/dL Total Bilirubin (0.2-1.0) mg/dL AST (15-37) IU/L ALT (14-63) IU/L Alkaline Phosphatase (46-116) U/L Total Protein (6.4-8.2) g/dL Albumin (3.4-5.0) g/dL Globulin (2.6-4.0) g/dL Albumin/Globulin Ratio (0.9-1.6) SARS Virus RNA (PCR) NEGATIVE (NEGATIVE) Result Diagrams: 05/19/20 11:28 05/19/20 11:28 Sepsis Event Note - Evaluation Sepsis Screening Result: No Definite Risk - Focused Exam Vital Signs: Vital Signs Temp Pulse Resp BP Pulse Ox 05/19/20 12:00 129 H 20 108/66 94 L 05/19/20 11:45 129 H 20 107/59 L 94 L 05/19/20 11:30 134 H 21 H 117/65 95 05/19/20 11:15 97.3 F 133 H 21 H 121/62 95 05/19/20 11:04 97.1 F 136 H 20 120/75 96 Date Exam was Performed: 05/19/20 Time Exam was Performed: 15:47 Problem List Initiated/Reviewed/Updated: Yes Orders Last 24hrs: Active Orders 24 hr Category Date Time Status Admission Status [Patient Status] [ADT] Stat ADT 05/19/20 14:43 Active Cardiac Monitoring [RC] . DIRECTED Care 05/19/20 11:16 Active Oxygen Therapy [RC] PRN Care 05/19/20 14:58 Ordered Pulse Oximetry [RC] ASDIRECTED Care 05/19/20 11:16 Active VTE/DVT Education [RC] PER UNIT ROUTINE Care 05/19/20 14:58 Ordered Vital Signs [RC] Q4H Care 05/19/20 14:58 Ordered CULTURE BLOOD [BC] Stat Lab 05/19/20 11:55 Received CULTURE BLOOD [BC] Stat Lab 05/19/20 12:05 Received UA W/MICROSCOPIC [URIN] Stat Lab 05/19/20 11:30 Ordered Acetaminophen [Tylenol Extra Strength] Med 05/19/20 15:03 Ordered 500 mg PO Q4H PRN Azithromycin [Zithromax] Med 05/20/20 15:15 Ordered 250 mg IV Q24H Azithromycin [Zithromax] 500 mg Med 05/19/20 15:00 Ordered Sodium Chloride 0.9% [Normal Saline (AdvBag)] 250 ml IV ONETIME Ibuprofen [Motrin] Med 05/19/20 15:03 Ordered 200 mg PO Q4H PRN Omeprazole Med 05/19/20 17:00 Ordered 20 mg PO BIDAC Piperacillin/Tazobactam [Piperacil-Tazobact] 3.375 gm Med 05/19/20 19:00 Ordered Sodium Chloride 0.9% [Normal Saline] 50 ml IV Q6H Sodium Chloride 0.9% [Normal Saline] 1,000 ml Med 05/19/20 14:57 Ordered IV CONTINUOUS Sodium Chloride 0.9% [Saline Flush] Med 05/19/20 11:16 Active 10 ml FLUSH ASDIRECTED PRN Sodium Chloride 0.9% [Saline Flush] Med 05/19/20 11:30 Active 10 ml FLUSH ASDIRECTED PRN Sodium Chloride 0.9% [Saline Flush] Med 05/19/20 11:16 Active 2.5 ml FLUSH ASDIRECTED PRN Sodium Chloride 0.9% [Saline Flush] Med 05/19/20 11:30 Active 2.5 ml FLUSH ASDIRECTED PRN oxyCODONE Med 05/19/20 15:02 Ordered 5 mg PO Q6H PRN Blood Culture x2 Reflex Set [OM.PC] Stat Ot 05/19/20 11:30 Ordered Saline Lock Insert [OM.PC] Stat Ot 05/19/20 11:16 Ordered Saline Lock Insert [OM.PC] Stat Ot 05/19/20 11:30 Ordered Severe Sepsis Onset Time [OM.PC] Stat [facility] 05/19/20 11:30 Ordered Resuscitation Status Routine Resus Stat 05/19/20 14:58 Ordered Medication Orders Acetaminophen (Tylenol Extra Strength) 500 mg PO Q4H PRN PRN Reason: Fever Azithromycin (Zithromax) 250 mg IV Q24H [facility] Sodium Chloride (Normal Saline) 1,000 mls @ 120 mls/hr IV CONTINUOUS ONE Stop: 05/19/20 23:16 Azithromycin 500 mg/ Sodium (Chloride) 250 mls @ 250 mls/hr IV ONETIME [facility] Piperacillin Sod/Tazobactam (Sod 3.375 gm/ Sodium Chloride) 50 mls @ 100 mls/hr IV Q6H [facility] Omeprazole (Omeprazole) 20 mg PO BIDAC [facility] Oxycodone HCl (Oxycodone) 5 mg PO Q6H PRN PRN Reason: Pain Sodium Chloride (Saline Flush) 10 ml FLUSH ASDIRECTED PRN PRN Reason: Keep Vein Open Sodium Chloride (Saline Flush) 2.5 ml FLUSH ASDIRECTED PRN PRN Reason: Keep Vein Open Sodium Chloride (Saline Flush) 10 ml FLUSH ASDIRECTED PRN PRN Reason: Keep Vein Open Sodium Chloride (Saline Flush) 2.5 ml FLUSH ASDIRECTED PRN PRN Reason: Keep Vein Open Assessment/Plan Comment:: Assessment: 1. SOB, tachycardia in setting for Multiple lung masses 2. Tachycardia 3. Elevated lactate w. concerns for post-obstructive CAP 4. PMH: tobacco abuse Plan: Admit to observation. Full code. I/o's per routine. Regular diet. GI:omeprazole DVT: heparin 5000 q12 hrs. Up ad adelina. telemetry. COVID negative 1. Elevated Lactate: received 1 liter NS bolus in ED ; repeat bolus in after noon; repeat lactate q 6hours. Monitor heart rate on telemetry. Concerns for post-obstructive CAP: continue Zosyn [id number] Azithromycin daily IV maintenance: 120 cc/hr Bolus of 1 L NS in PM Discussed presentation with patient regarding potential need for transfer; pt refusing this at this time. Will continue to monitor response to fluids+IV abx and assess accordingly. pt otherwise stable at this time Pain control: oxycodone, Tylenol and ibuprofen
[2020-05-19] MEDS: Heparin Sodium 5,000 Units/ML Vial SUBCUT SCH (15:55)
[2020-05-19] MEDS: Nicotine 14 MG/24 Hr Patch TRDERM SCH ×2 (15:55→22:36)
[2020-05-19] MEDS ORDERED: Ondansetron 4 MG/2 ML SDV IVPUSH PRN (16:52)
[2020-05-19] MEDS: oxyCODONE 5 MG Tab PO PRN (17:06)
[2020-05-19] MEDS: Omeprazole 20 MG Cap.CR PO SCH (17:07)
[2020-05-19] MEDS: Piperacillin/Tazobactam 3.375 GM in Sodium Chloride 0.9% 50 ML IV SCH (18:36)
[2020-05-19] MEDS ORDERED: Sodium Chloride 0.9% 500 ML IV SCH ×2 (18:45→19:00)
[2020-05-19 19:03] LABS: HEMOGLOBIN A1C 5.7 % (4.5-6.2)
[2020-05-19] MEDS: Ibuprofen 200 MG Tab PO PRN (19:22)
[2020-05-20] MEDS: Piperacillin/Tazobactam 3.375 GM in Sodium Chloride 0.9% 50 ML IV SCH ×2 (00:58→06:25)
[2020-05-20] MEDS: oxyCODONE 5 MG Tab PO PRN ×2 (01:03→07:19)
[2020-05-20] MEDS: Heparin Sodium 5,000 Units/ML Vial SUBCUT SCH (04:13)
[2020-05-20] MEDS: Sodium Chloride 0.9% 1,000 ML IV SCH ×2 (04:14→09:40)
[2020-05-20] MEDS: Ibuprofen 200 MG Tab PO PRN (06:26)
[2020-05-20] MEDS: Omeprazole 20 MG Cap.CR PO SCH (06:30)
[2020-05-20 06:47] LABS: BLOOD UREA NITROGEN,BUN 12 mg/dL (7.0-18.0); CARBON DIOXIDE,CO2 27.8 mmol/L (21.0-32.0); CHLORIDE,CL 104 mmol/L (98-107); GLUCOSE RANDOM 96 mg/dL (74-106); POTASSIUM,K 4.3 mmol/L (3.5-5.1); SODIUM,NA 139 mmol/L (136-148)
[2020-05-20] MEDS: Nicotine 14 MG/24 Hr Patch TRDERM SCH (09:37)
--- NOTE | 2020-05-20 11:22 | PCM.DCSUM1 ---
Discharge Summary - Discharge Data Discharge Date: 05/20/20 Discharge Disposition: Home, Self-Care 01 Condition: Fair - Referral to Home Health Primary Care Physician: Nehal De La Vega MD - Patient Summary/Data Hospital Course: Patient is a 34 y.o smoker w. significant PMH of recent diagnosis of multiple pulmonary nodules and axillary mass s/p biopsy who was admitted for suspected pneumonia. He presented with cough, shortness of breath, and fevers. Lab work up was significant for WBC was 26,000 and lactic acid of 2.7. CXR showed multiple large pulmonary masses. Preliminary path reported malignant cells but it was referred to [place] for further testing. Patient was treated with IV fluids, Zosyn and azithromycin. Patient's lactic acid normalized and WBC improved. I did recommend patient to stay for another day of IV antibiotic therapy but patient refused. Patient reported feeling better and wanted to be with home with family. Patient was discharged with oral Levaquin. He is to follow up with Oncology next week. - Discharge Plan Prescriptions/Med Rec: levoFLOXacin [Levaquin] 750 mg PO DAILY #7 tab Home Medications: Home Meds levoFLOXacin [Levaquin] 750 mg PO DAILY #7 tab 05/20/20 [Rx] Forms: ED Department Discharge Referrals: Nehal De La Vega MD [Primary Care Provider] - - Discharge Summary/Plan Comment DC Time >30 min.: No - Patient Data Vitals - Most Recent: Last Vital Signs Temp 36.4 C 05/20/20 07:15 Pulse 94 05/20/20 09:35 Resp 16 05/20/20 09:35 BP 119/69 05/20/20 07:15 Pulse Ox 95 05/20/20 09:35 Weight - Most Recent: 78 kg I&O - Last 24 hours: Intake & Output 05/19/20 05/20/20 05/20/20 22:59 06:59 14:59 Intake Total 1899 1290 Output Total 301 Balance 1598 1290 Lab Results - Last 24 hrs: Laboratory Results - last 24 hr 05/19/20 05/19/20 05/19/20 Range/Units 11:28 11:28 11:28 WBC 26.80 H (4.0-11.0) K/uL RBC 4.09 L (4.50-5.90) M/uL Hgb 9.2 L (13.0-17.0) g/dL Hct 30.2 L (38.0-50.0) % MCV 73.8 L (80.0-98.0) fL MCH 22.5 L (27.0-32.0) pg MCHC 30.5 L (31.0-37.0) g/dL RDW Std Deviation 42.7 (28.0-62.0) fl RDW Coeff of Carol 16 H (11.0-15.0) % Plt Count 456 H (150-400) K/uL MPV 9.50 (7.40-12.00) fL Neut % (Auto) 89.3 H (48.0-80.0) % Lymph % (Auto) 4.1 L (16.0-40.0) % [place] % (Auto) 6.5 (0.0-15.0) % Eos % (Auto) 0.0 (0.0-7.0) % Baso % (Auto) 0.1 (0.0-1.5) % Neut # (Auto) 23.9 H (1.4-5.7) K/uL Lymph # (Auto) 1.1 (0.6-2.4) K/uL [place] # (Auto) 1.7 H (0.0-0.8) K/uL Eos # (Auto) 0.0 (0.0-0.7) K/uL Baso # (Auto) 0.0 (0.0-0.1) K/uL Nucleated RBC % 0.0 /100WBC Nucleated RBCs # 0 K/uL Lactate 2.7 H* (0.20-2.00) mmol/L Sodium 132 L (136-148) mmol/L Potassium 4.8 (3.5-5.1) mmol/L Chloride 95 L (98-107) mmol/L Carbon Dioxide 27.2 (21.0-32.0) mmol/L BUN 14 (7.0-18.0) mg/dL Creatinine 1.2 (0.8-1.3) mg/dL Est Cr Clr Drug Dosing 83.92 mL/min Estimated GFR (MDRD) > 60.0 ml/min Glucose 144 H (74-106) mg/dL Hemoglobin A1c (4.5-6.2) % Calcium 8.7 (8.5-10.1) mg/dL Total Bilirubin 2.3 H (0.2-1.0) mg/dL AST 21 (15-37) IU/L ALT 31 (14-63) IU/L Alkaline Phosphatase 159 H (46-116) U/L Total Protein 7.3 (6.4-8.2) g/dL Albumin 2.8 L (3.4-5.0) g/dL Globulin 4.5 H (2.6-4.0) g/dL Albumin/Globulin Ratio 0.6 L (0.9-1.6) Urine Color Urine Appearance Urine pH (5.0-8.0) Ur Specific [place] (1.001-1.035) Urine Protein (NEGATIVE) mg/dL Urine Glucose (UA) (NEGATIVE) mg/dL Urine Ketones (NEGATIVE) mg/dL Urine Occult Blood (NEGATIVE) Urine Nitrite (NEGATIVE) Urine Bilirubin (NEGATIVE) Urine Ictotest Urine Urobilinogen (<2.0) EU/dL Ur Leukocyte Esterase (NEGATIVE) Urine RBC (0-2/HPF) Urine WBC (0-5/HPF) Ur Epithelial Cells (NONE-FEW) Urine Bacteria (NEGATIVE) Urine Mucus (NONE-MOD) SARS Virus RNA (PCR) (NEGATIVE) 05/19/20 05/19/20 05/19/20 Range/Units 11:28 12:30 17:00 WBC (4.0-11.0) K/uL RBC (4.50-5.90) M/uL Hgb (13.0-17.0) g/dL Hct (38.0-50.0) % MCV (80.0-98.0) fL MCH (27.0-32.0) pg MCHC (31.0-37.0) g/dL RDW Std Deviation (28.0-62.0) fl RDW Coeff of Carol (11.0-15.0) % Plt Count (150-400) K/uL MPV (7.40-12.00) fL Neut % (Auto) (48.0-80.0) % Lymph % (Auto) (16.0-40.0) % [place] % (Auto) (0.0-15.0) % Eos % (Auto) (0.0-7.0) % Baso % (Auto) (0.0-1.5) % Neut # (Auto) (1.4-5.7) K/uL Lymph # (Auto) (0.6-2.4) K/uL [place] # (Auto) (0.0-0.8) K/uL Eos # (Auto) (0.0-0.7) K/uL Baso # (Auto) (0.0-0.1) K/uL Nucleated RBC % /100WBC Nucleated RBCs # K/uL Lactate (0.20-2.00) mmol/L Sodium (136-148) mmol/L Potassium (3.5-5.1) mmol/L Chloride (98-107) mmol/L Carbon Dioxide (21.0-32.0) mmol/L BUN (7.0-18.0) mg/dL Creatinine (0.8-1.3) mg/dL Est Cr Clr Drug Dosing mL/min Estimated GFR (MDRD) ml/min Glucose (74-106) mg/dL Hemoglobin A1c 5.7 (4.5-6.2) % Calcium (8.5-10.1) mg/dL Total Bilirubin (0.2-1.0) mg/dL AST (15-37) IU/L ALT (14-63) IU/L Alkaline Phosphatase (46-116) U/L Total Protein (6.4-8.2) g/dL Albumin (3.4-5.0) g/dL Globulin (2.6-4.0) g/dL Albumin/Globulin Ratio (0.9-1.6) Urine Color DARK YELLOW Urine Appearance SLT CLOUDY Urine pH 5.5 (5.0-8.0) Ur Specific [place] 1.025 (1.001-1.035) Urine Protein 30 H (NEGATIVE) mg/dL Urine Glucose (UA) NEGATIVE (NEGATIVE) mg/dL Urine Ketones TRACE H (NEGATIVE) mg/dL Urine Occult Blood NEGATIVE (NEGATIVE) Urine Nitrite POSITIVE H (NEGATIVE) Urine Bilirubin MODERATE H (NEGATIVE) Urine Ictotest NEGATIVE Urine Urobilinogen >=8.0 H (<2.0) EU/dL Ur Leukocyte Esterase NEGATIVE (NEGATIVE) Urine RBC 0-2 (0-2/HPF) Urine WBC 1-4 (0-5/HPF) Ur Epithelial Cells FEW (NONE-FEW) Urine Bacteria FEW (NEGATIVE) Urine Mucus LIGHT (NONE-MOD) SARS Virus RNA (PCR) NEGATIVE (NEGATIVE) 05/19/20 05/20/20 05/20/20 Range/Units 18:30 06:00 06:00 WBC 18.01 H (4.0-11.0) K/uL RBC 3.54 L (4.50-5.90) M/uL Hgb 8.0 L (13.0-17.0) g/dL Hct 26.2 L (38.0-50.0) % MCV 74.0 L (80.0-98.0) fL MCH 22.6 L (27.0-32.0) pg MCHC 30.5 L (31.0-37.0) g/dL RDW Std Deviation 43.1 (28.0-62.0) fl RDW Coeff of Carol 16 H (11.0-15.0) % Plt Count 418 H (150-400) K/uL MPV 9.50 (7.40-12.00) fL Neut % (Auto) 78.7 (48.0-80.0) % Lymph % (Auto) 9.7 L (16.0-40.0) % [place] % (Auto) 11.2 (0.0-15.0) % Eos % (Auto) 0.3 (0.0-7.0) % Baso % (Auto) 0.1 (0.0-1.5) % Neut # (Auto) 14.2 H (1.4-5.7) K/uL Lymph # (Auto) 1.7 (0.6-2.4) K/uL [place] # (Auto) 2.0 H (0.0-0.8) K/uL Eos # (Auto) 0.1 (0.0-0.7) K/uL Baso # (Auto) 0.0 (0.0-0.1) K/uL Nucleated RBC % 0.0 /100WBC Nucleated RBCs # 0 K/uL Lactate 1.5 (0.20-2.00) mmol/L Sodium 139 (136-148) mmol/L Potassium 4.3 (3.5-5.1) mmol/L Chloride 104 (98-107) mmol/L Carbon Dioxide 27.8 (21.0-32.0) mmol/L BUN 12 (7.0-18.0) mg/dL Creatinine 0.9 (0.8-1.3) mg/dL Est Cr Clr Drug Dosing 111.89 mL/min Estimated GFR (MDRD) > 60.0 ml/min Glucose 96 (74-106) mg/dL Hemoglobin A1c (4.5-6.2) % Calcium 8.1 L (8.5-10.1) mg/dL Total Bilirubin 1.0 (0.2-1.0) mg/dL AST 21 (15-37) IU/L ALT 24 (14-63) IU/L Alkaline Phosphatase 140 H (46-116) U/L Total Protein 6.5 (6.4-8.2) g/dL Albumin 2.3 L (3.4-5.0) g/dL Globulin 4.2 H (2.6-4.0) g/dL Albumin/Globulin Ratio 0.6 L (0.9-1.6) Urine Color Urine Appearance Urine pH (5.0-8.0) Ur Specific [place] (1.001-1.035) Urine Protein (NEGATIVE) mg/dL Urine Glucose (UA) (NEGATIVE) mg/dL Urine Ketones (NEGATIVE) mg/dL Urine Occult Blood (NEGATIVE) Urine Nitrite (NEGATIVE) Urine Bilirubin (NEGATIVE) Urine Ictotest Urine Urobilinogen (<2.0) EU/dL Ur Leukocyte Esterase (NEGATIVE) Urine RBC (0-2/HPF) Urine WBC (0-5/HPF) Ur Epithelial Cells (NONE-FEW) Urine Bacteria (NEGATIVE) Urine Mucus (NONE-MOD) SARS Virus RNA (PCR) (NEGATIVE) Med Orders - Current: Current Medications Acetaminophen (Tylenol Extra Strength) 500 mg PO Q4H PRN PRN Reason: Fever Last Admin: 05/19/20 18:34 Dose: 500 mg Documented by: Heparin Sodium (Porcine) (Heparin Sodium) 5,000 units SUBCUT Q12H [facility] Last Admin: 05/20/20 04:13 Dose: 5,000 units Documented by: Piperacillin Sod/Tazobactam (Sod 3.375 gm/ Sodium Chloride) 50 mls @ 100 mls/hr IV Q6H [facility] Last Admin: 05/20/20 06:25 Dose: 100 mls/hr Documented by: Azithromycin 250 mg/ Sodium (Chloride) 250 mls @ 250 mls/hr IV Q24H [facility] Sodium Chloride (Normal Saline) 500 mls @ 999 mls/hr IV STAT [facility] Last Admin: 05/19/20 18:58 Dose: 999 mls/hr Documented by: Sodium Chloride (Normal Saline) 500 mls @ 999 mls/hr IV STAT [facility] Last Admin: 05/19/20 19:34 Dose: 999 mls/hr Documented by: Sodium Chloride (Normal Saline) 1,000 mls @ 120 mls/hr IV ASDIRECTED [facility] Last Admin: 05/20/20 09:40 Dose: 120 mls/hr Documented by: Ibuprofen (Motrin) 200 mg PO Q4H PRN PRN Reason: Pain Last Admin: 05/20/20 06:26 Dose: 200 mg Documented by: Nicotine (Habitrol) 14 mg TRDERM DAILY [facility] Last Admin: 05/20/20 09:37 Dose: 14 mg Documented by: Omeprazole (Omeprazole) 20 mg PO BIDAC [facility] Last Admin: 05/20/20 06:30 Dose: 20 mg Documented by: Ondansetron HCl (Zofran) 4 mg IVPUSH Q4H PRN PRN Reason: Nausea Last Admin: 05/19/20 17:07 Dose: 4 mg Documented by: Oxycodone HCl (Oxycodone) 5 mg PO Q6H PRN PRN Reason: Pain Last Admin: 05/20/20 07:19 Dose: 5 mg Documented by: Sodium Chloride (Saline Flush) 10 ml FLUSH ASDIRECTED PRN PRN Reason: Keep Vein Open Sodium Chloride (Saline Flush) 2.5 ml FLUSH ASDIRECTED PRN PRN Reason: Keep Vein Open Sodium Chloride (Saline Flush) 10 ml FLUSH ASDIRECTED PRN PRN Reason: Keep Vein Open Sodium Chloride (Saline Flush) 2.5 ml FLUSH ASDIRECTED PRN PRN Reason: Keep Vein Open Discontinued Medications Azithromycin (Zithromax) 250 mg IV Q24H [facility] Sodium Chloride (Normal Saline) 1,000 mls @ 999 mls/hr IV .Bolus ONE Stop: 05/19/20 12:30 Last Admin: 05/19/20 11:41 Dose: 999 mls/hr Documented by: Piperacillin Sod/Tazobactam (Sod 3.375 gm/ Sodium Chloride) 50 mls @ 100 mls/hr IV ONETIME ONE Stop: 05/19/20 13:39 Last Admin: 05/19/20 13:20 Dose: 100 mls/hr Documented by: Vancomycin HCl 1.5 gm/ Premix 300 mls @ 300 mls/hr IV ONETIME ONE Stop: 05/19/20 13:12 Last Admin: 05/19/20 14:17 Dose: 300 mls/hr Documented by: Sodium Chloride (Normal Saline) 1,000 mls @ 120 mls/hr IV CONTINUOUS ONE Stop: 05/19/20 23:16 Last Admin: 05/19/20 15:50 Dose: 120 mls/hr Documented by: Azithromycin 500 mg/ Sodium (Chloride) 250 mls @ 250 mls/hr IV ONETIME ONE Stop: 05/19/20 15:59 Last Admin: 05/19/20 15:50 Dose: 250 mls/hr Documented by: Azithromycin 250 mg/ Sodium (Chloride) 250 mls @ 250 mls/hr IV Q24H [facility] Last Admin: 05/19/20 15:35 Dose: Not Given Documented by: Sodium Chloride (Normal Saline) 1,000 mls @ 999 mls/hr IV BOLUS ONE Stop: 05/19/20 19:00 Last Admin: 05/19/20 17:10 Dose: 999 mls/hr Documented by: Ketorolac Tromethamine (Toradol) 30 mg IVPUSH ONETIME ONE Stop: 05/19/20 11:17 Last Admin: 05/19/20 11:36 Dose: 30 mg Documented by: Ondansetron HCl (Zofran) 4 mg IVPUSH ONETIME ONE Stop: 05/19/20 11:17 Last Admin: 05/19/20 11:35 Dose: 4 mg Documented by:
[2020-05-20] MEDS ORDERED: Azithromycin 250 MG in Sodium Chloride 0.9% 250 ML IV SCH (15:00)
[2020-05-20] MEDS ORDERED: Azithromycin 500 MG Vial IV SCH (15:15)
== END 2020-05-20 12:25 | disposition home or self-care (01) ==
LOC: MW.ED 10:32 → MW.MS 14:43
PROVIDERS: ADMIT Internal Medicine; ATTEND Internal Medicine
DX: R06.02 Shortness of breath (principal); R00.0 Tachycardia, unspecified; R79.89 Other specified abnormal findings of blood chemistry; R05 Cough; R91.8 Other nonspecific abnormal finding of lung field; F17.200 Nicotine dependence, unspecified, uncomplicated; Z20.828 Contact with and (suspected) exposure to other viral communicable diseases; Z53.29 Procedure and treatment not carried out because of patient's decision for other reasons
CPT/HCPCS: 36415; 71045; 71045-26; 80053; 81001; 83036; 83605; 85025; 87040; 93005; 96361; 96365; 96366; 96367; 96372; 96375; 96376; 99282; 99285-25; A9270-GY; G0378; J0456; J1644; J1885; J2405; J2543; J3370; J7030; J7040; J7050; U0002

== ENCOUNTER 2020-06-01 08:52 | Day surgery (SDC) | payer SELFPAY ==
[~2020-06-01 08:52] MED LIST changes: +Bupivacaine 0.5% 10 ML SDV ONE; -Bupivacaine 0.5% 30 ML SDV ONE; +Heparin Sodium 100 Units/ML 3 ML Syringe ONE; +Lidocaine 1% 20 ML MDV ONE; -Lidocaine 2% 5 ML SDV ONE; -Midazolam 1 MG/ML 2 ML SDV ONE; -Ondansetron 4 MG/2 ML SDV ONE; -Propofol 200 MG/20 ML SDV ONE; -Sodium Chloride 0.9% 10 ML SDV IV PRN; -Sodium Chloride 0.9% 10 ML Syringe FLUSH PRN; -Sodium Chloride 0.9% 2.5 ML Syringe FLUSH PRN; -ceFAZolin 2 GM in Premix Bag 1 BAG IV ONE; +ceFAZolin 2 GM in Premix Bag 1 BAG IV SCH; -fentaNYL 100 MCG/2 ML SDV ONE
--- NOTE | 2020-06-01 09:17 | PCM.PREANE ---
Preanesthetic Assessment - Anesthesia/Transfusion/Family Hx Anesthesia History: Prior Anesthesia Without Reaction Family History of Anesthesia Reaction: No Transfusion History: No Prior Transfusion(s) - Review of Systems General: No Symptoms Pulmonary: No Symptoms Cardiovascular: No Symptoms Gastrointestinal: No Symptoms Neurological: No Symptoms Other: Reports: None - Physical Assessment NPO Status Date: 05/31/20 Height: 5 ft 8 in Weight: 74.843 kg ASA Class: 2 Mental Status: Alert & Oriented x3 Airway Class: Mallampati = 2 Dentition: Reports: Broken Tooth/Teeth, Caries ROM/Head Extension: Full Lungs: Clear to Auscultation, Normal Respiratory Effort Cardiovascular: Regular Rate, Regular Rhythm - Allergies Allergies/Adverse Reactions: Allergies Allergy/AdvReac Type Severity Reaction Status Date / Time No Known Allergies Allergy Verified 05/30/20 09:41 - Blood Blood Available: No - Anesthesia Plan Pre-Op Medication Ordered: None - Acknowledgements Anesthesia Type Planned: General Anesthesia, MAC Pt an Appropriate Candidate for the Planned Anesthesia: Yes Alternatives and Risks of Anesthesia Discussed w Pt/Guardian: Yes Pt/Guardian Understands and Agrees with Anesthesia Plan: Yes Additional Comments: PMH: poor dentition, smoker PLAN: ga/lma or MAC per surgeon preference PreAnesthesia Questionnaire - Past Health History Medical/Surgical History: Denies Medical/Surgical History HEENT History: Reports: None Cardiovascular History: Reports: None Respiratory History: Reports: Other (See Below) Other Respiratory History: CT scan of chest shows george pulmonary metastases Gastrointestinal History: Reports: Other (See Below) Other Gastrointestinal History: occasional heartburn Genitourinary History: Reports: None Musculoskeletal History: Reports: Fracture Other Musculoskeletal History: hx of fx left wrist, right ring finger, and both pinky toes Neurological History: Reports: None Psychiatric History: Reports: None Endocrine/Metabolic History: Reports: None Hematologic History: Reports: None Immunologic History: Reports: None Oncologic (Cancer) History: Reports: Lung, Malignant Melanoma, Other (See Below) Other Oncologic History: malignant melanoma with george pulmonary metastases Dermatologic History: Reports: Other (See Below) - Infectious Disease History Infectious Disease History: Reports: Chicken Pox - Past Surgical History Head Surgeries/Procedures: Reports: None HEENT Surgical History: Reports: None Cardiovascular Surgical History: Reports: None Respiratory Surgical History: Reports: None GI Surgical History: Reports: None Male Surgical History: Reports: None Endocrine Surgical History: Reports: None Neurological Surgical History: Reports: None Musculoskeletal Surgical History: Reports: ORIF Other Musculoskeletal Surgeries/Procedures:: ORIF left wrist- has plate and screws Oncologic Surgical History: Reports: None Dermatological Surgical History: Reports: Other (See Below) - SUBSTANCE USE Smoking Status *Q: Current Every Day Smoker Tobacco Use Within Last Twelve Months: Cigarettes - HOME MEDS Home Medications: Home Meds Acetaminophen [Tylenol Extra Strength] 2 tab PO ASDIRECTED PRN 05/30/20 [History] - CURRENT (IN HOUSE) MEDS Current Meds: Current Medications Cefazolin Sodium/Dextrose 2 gm (/ Premix) 50 mls @ 100 mls/hr IV ONETIME JEAN PIERRE Lactated Ringer's (Ringers, Lactated) 1,000 mls @ 125 mls/hr IV ASDIRECTED JEAN PIERRE Discontinued Medications Bupivacaine HCl (Sensorcaine-Mpf 0.5%) Confirm Administered Dose 10 ml .ROUTE .STK-MED ONE Stop: 06/01/20 08:45 Heparin Sodium (Porcine) (Heparin Lock Flush 100 Units/Ml) Confirm Administered Dose 300 unit .ROUTE .STK-MED ONE Stop: 06/01/20 08:45 Lidocaine HCl (Xylocaine 1%) Confirm Administered Dose 20 ml .ROUTE .STK-MED ONE Stop: 06/01/20 08:45
[2020-06-01] MEDS ORDERED: fentaNYL 100 MCG/2 ML SDV ONE (09:43)
[2020-06-01] MEDS ORDERED: Midazolam 1 MG/ML 2 ML SDV ONE (09:43)
[2020-06-01] MEDS ORDERED: Propofol 200 MG/20 ML SDV ONE ×2 (09:43→11:20)
[2020-06-01] MEDS ORDERED: ceFAZolin 1 GM Vial ONE (10:18)
[2020-06-01] MEDS ORDERED: Naloxone 0.4 MG/ML Syringe IVPUSH PRN (10:39)
[2020-06-01] MEDS ORDERED: fentaNYL 100 MCG/2 ML SDV IVPUSH PRN (10:39)
[2020-06-01] MEDS ORDERED: 50% Dextrose in Water 50 ML Syringe IVPUSH PRN (10:39)
[2020-06-01] MEDS ORDERED: EPINEPHrine 1:10,000 1 MG/10 ML Syringe IVPUSH PRN (10:39)
[2020-06-01] MEDS ORDERED: Albuterol 0.083% 2.5 MG/3 ML Neb Soln NEB PRN (10:39)
[2020-06-01] MEDS ORDERED: Atropine 0.1 MG/ML 10 ML Syringe IVPUSH PRN ×2 (10:39)
[2020-06-01] MEDS ORDERED: Acetaminophen/HYDROcodone 325-10 MG Tab PO PRN (12:08)
--- NOTE | 2020-06-01 12:10 | PCM.OPNOTE ---
- General Post-Op/Procedure Note Date of Surgery/Procedure: 06/01/20 Operative Procedure(s): Placement of Bard PowerPort Pre Op Diagnosis: Stage IV melanoma Post-Op Diagnosis: Same Anesthesia Technique: Local, MAC (ASA III) Primary Surgeon: Oral Rajput [employer] Technician: Munira Pederson Fluid Replacement, Intraop: 1,500 EBL in mLs: 25 Condition: Good Free Text/Narrative:: DICTATION 172599 CPT CODE 71207
--- NOTE | 2020-06-01 12:13 | CR ---
Left chest: 7 fluoroscopic spot views of the upper left chest were obtained utilizing C-arm device. Study shows placement of a left central line. Final position of the line is within the superior vena cava. Fluoroscopy time given as 98.7 seconds. Impression: 1. Procedural study as noted above. Diagnostic code #2 This report was dictated in MDT
[2020-06-01] MEDS ORDERED: Lactated Ringers 1,000 ML IV SCH (12:15)
--- NOTE | 2020-06-01 12:51 | PCM.POSTAN ---
POST ANESTHESIA ASSESSMENT - MENTAL STATUS Mental Status: Alert - VITAL SIGNS Vital Signs: Last Vital Signs Temp 36.7 C 06/01/20 11:56 Pulse 103 H 06/01/20 12:42 Resp 13 06/01/20 12:42 BP 107/64 06/01/20 12:42 Pulse Ox 96 06/01/20 12:42 - RESPIRATORY Respiratory Status: Respiratory Rate WNL, O2 Saturation Stable - CARDIOVASCULAR CV Status: Pulse Rate WNL - GASTROINTESTINAL GI Status: No Symptoms - PAIN Pain Score: 0 - POST OP HYDRATION Hydration Status: Adequate & Stable - OBSERVATIONS Free Text/Narrative:: Progressing well. Will transfer to .
--- NOTE | 2020-06-01 12:54 | CR ---
Chest: Portable view of the chest was obtained. Comparison: Prior chest x-ray of 05/17/20. Large pulmonary masses are noted on both sides of the chest. Most of the findings are fairly similar to prior study. Slight increasing density within the left upper chest as an interval change from previous exam. Infusion port is seen with tip lying within the superior vena cava. Bony structures are grossly intact. No pneumothorax is seen. Impression: 1. Large pulmonary masses on both sides of the chest. 2. Increasing density within the left upper lung which may represent worsening metastatic disease, atelectasis or pneumonia. 3. New infusion port. Diagnostic code #3 This report was dictated in MDT
--- NOTE | 2020-06-01 13:36 | PCM48HPAN ---
Post Anesthesia Note - EVALUATION WITHIN 48HRS OF ANESTHETIC Vital Signs in Normal Range: Yes Patient Participated in Evaluation: Yes Respiratory Function Stable: Yes Airway Patent: Yes Cardiovascular Function Stable: Yes Hydration Status Stable: Yes Pain Control Satisfactory: Yes Nausea and Vomiting Control Satisfactory: Yes Mental Status Recovered: Yes Vital Signs: Last Vital Signs Temp 98.1 F 06/01/20 11:56 Pulse 94 06/01/20 12:47 Resp 12 06/01/20 12:47 BP 103/54 L 06/01/20 12:47 Pulse Ox 94 L 06/01/20 12:47
[2020-06-01] MEDS ORDERED: Heparin Sodium 100 Units/ML 3 ML Syringe ONE (16:04)
--- NOTE | 2020-06-04 09:38 | OR ---
SURGEON: Oral Rajput M.D. DATE OF PROCEDURE: 06/01/2020 OPERATION PERFORMED: Placement of Bard PowerPort. PRIMARY SURGEON: Oral Rajput M.D. [employer]: case assistant: MARI [employer] student. ANESTHESIA: Local MAC. ASA CLASSIFICATION: III. PREOPERATIVE DIAGNOSIS: Metastatic melanoma. POSTOPERATIVE DIAGNOSIS: Metastatic melanoma. ESTIMATED BLOOD LOSS: 25 mL. INTRAOPERATIVE FLUID REPLACEMENT: 1500 mL of crystalloid. DESCRIPTION OF PROCEDURE: The patient was taken to the operating room and placed on the operating table in the supine position. Time-out was called for appropriate identification of the patient and procedure. Sequential compression boots were placed. Monitored anesthesia care was provided. The left chest was prepped with DuraPrep solution and sterile drapes were applied. The skin in the left deltopectoral groove was anesthetized with 1% Xylocaine and 0.5% Marcaine solution. Skin incision was made and deepened through the subcutaneous tissue down to the deltopectoral groove. The cephalic vein was of great quality. This was therefore encircled with three 3-0 Vicryl ties. The distal most tie was secured. A small venotomy was made, and the heparin flush catheter was inserted through the venotomy into the vein. Despite multiple maneuvers and with the use of fluoroscopy, I could never advance it beyond 9 to 10 cm. After multiple attempts including trying to pass a guidewire through that area, we were not successful and therefore abandoned that approach. The area at the junction of the medial one-third and lateral two-thirds of the clavicle was infiltrated with 1% Xylocaine and 0.5% Marcaine solution. Using Seldinger technique, the left subclavian vein was cannulated with good return of blood. Guidewire was passed through the needle and position confirmed with fluoroscopy. No cardiac dysrhythmias occurred. A small skin incision was then made and the guidewire was pulled back to allow placement of the peel-away sheath and introducer. This was passed into the subclavian vein without difficulty and the introducer and guidewire were removed. Again, the heparin flush catheter was now positioned again with the use of fluoroscopy through the peel-away sheath into the superior vena cava. Confirmation was obtained of proper placement. The peel-away sheath was then removed. The catheter was passed through a subcutaneous tunnel from the small skin incision to the deltopectoral incision. A second incision was chosen on the anterior chest wall and again the skin infiltrated with 1% Xylocaine and 0.5% Marcaine solution. The catheter was passed through a second tunnel into this incision and the heparin flush PowerPort and catheter were connected after the catheter had been cut to appropriate length. The connector was secured. There was good return of blood and the PowerPort was flushed with heparinized saline solution. The PowerPort was then secured to the subcutaneous tissue with interrupted 2-0 silk sutures. Both incisions were closed in 2 layers approximating the subcutaneous tissue with 3-0 Vicryl and the skin with subcuticular 4-0 Monocryl. The small skin puncture site under the clavicle was closed with subcuticular 3-0 Vicryl. All incisions were steri-stripped and dressed with sterile Tegaderm pads. Sponge, needle, and instrument counts were all correct. The patient did tolerate the procedure well and was taken to recovery room in stable condition. Chest x-ray has been ordered. CC: Miguel Angel [address] [address] PINA / DAMION /[id number]
== END 2020-06-01 13:45 | disposition home or self-care (01) ==
LOC: MW.SDS 08:52
PROVIDERS: ATTEND Surgery
DX: C43.59 Malignant melanoma of other part of trunk (principal); C78.01 Secondary malignant neoplasm of right lung; C78.02 Secondary malignant neoplasm of left lung; R22.30 Localized swelling, mass and lump, unspecified upper limb; M79.89 Other specified soft tissue disorders; F17.210 Nicotine dependence, cigarettes, uncomplicated; F19.11 Other psychoactive substance abuse, in remission; Z80.3 Family history of malignant neoplasm of breast; Z80.49 Family history of malignant neoplasm of other genital organs
CPT/HCPCS: 36561; 71045; 76000; A9270; J0690; J1642; J2001; J2250; J2704; J3490; J7120; J3010

== ENCOUNTER 2020-08-07 17:56 | Emergency (ER) | payer MEDICAID ==
[2020-08-07] MEDS ORDERED: Ketorolac 60 MG/2 ML SDV IM ONE (19:22)
--- NOTE | 2020-08-07 19:28 | EDM.PDOC ---
ED HPI GENERAL MEDICAL PROBLEM - General Chief Complaint: Lower Extremity Injury/Pain Stated Complaint: RIGHT LEG/HIP/BUTTOCK PAIN Time Seen by Provider: 08/07/20 18:40 Source of Information: Reports: Patient History Limitations: Reports: No Limitations - History of Present Illness INITIAL COMMENTS - FREE TEXT/NARRATIVE: Presents reporting right buttock pain that radiates to the right thigh. States he thinks it is from sitting for long periods on his wallet. States he has not been working because he is recovering from malignant melanoma. He did have a PET scan today and will be following up with his oncologist. No known injury. Not had this pain before. Noticed it first about 3 days ago. Denies fever, bowel or bladder dysfunction, tingling or numbness in the lower legs or feet, weakness or difficulty with ambulation. Right Hip Pain Score (Numeric/FACES): 10 - Related Data Allergies Allergy/AdvReac Type Severity Reaction Status Date / Time No Known Allergies Allergy Verified 06/01/20 10:02 Home Meds: Home Meds Cyclobenzaprine [Flexeril] 1 tab PO TID PRN #20 tab 08/07/20 [Rx] Ibuprofen 400 mg PO Q6HR PRN 08/07/20 [History] Zolpidem [Ambien] 10 mg PO BEDTIME 08/07/20 [History] Past Medical History - Past Health History Medical/Surgical History: Denies Medical/Surgical History HEENT History: Reports: None Cardiovascular History: Reports: None Respiratory History: Reports: Other (See Below) Other Respiratory History: CT scan of chest shows george pulmonary metastases Gastrointestinal History: Reports: Other (See Below) Other Gastrointestinal History: occasional heartburn Genitourinary History: Reports: None Musculoskeletal History: Reports: Fracture Other Musculoskeletal History: hx of fx left wrist, right ring finger, and both pinky toes Neurological History: Reports: None Psychiatric History: Reports: None Endocrine/Metabolic History: Reports: None Hematologic History: Reports: None Immunologic History: Reports: None Oncologic (Cancer) History: Reports: Lung, Malignant Melanoma, Other (See Below) Other Oncologic History: malignant melanoma with george pulmonary metastases Dermatologic History: Reports: Other (See Below) - Infectious Disease History Infectious Disease History: Reports: Chicken Pox, Influenza - Past Surgical History Head Surgeries/Procedures: Reports: None HEENT Surgical History: Reports: None Cardiovascular Surgical History: Reports: None Respiratory Surgical History: Reports: None GI Surgical History: Reports: None Male Surgical History: Reports: None Endocrine Surgical History: Reports: None Neurological Surgical History: Reports: None Musculoskeletal Surgical History: Reports: ORIF Other Musculoskeletal Surgeries/Procedures:: ORIF left wrist- has plate and screws Oncologic Surgical History: Reports: None Dermatological Surgical History: Reports: Other (See Below) Social & Family History - Family History Family Medical History: Noncontributory Cardiac: Reports: [place] OBGYN: Reports: Oncologic: Reports: Breast - Tobacco Use Smoking Status *Q: Former Smoker Years of Tobacco use: 15 Packs/Tins Daily: 1 Used Tobacco, but Quit: Yes Month/Year Tobacco Last Used: may 2020 Second Hand Smoke Exposure: No - Caffeine Use Caffeine Use: Reports: Coffee - Recreational Drug Use Recreational Drug Use: No Review of Systems - Review of Systems Review Of Systems: Comprehensive ROS is negative, except as noted in HPI. ED EXAM, GENERAL - Physical Exam Exam: See Below Exam Limited By: No Limitations General Appearance: Alert, No Apparent Distress Ears: Normal External Exam Nose: Normal Inspection Throat/Mouth: Normal Inspection Head: Atraumatic Neck: Normal Inspection Respiratory/Chest: No Respiratory Distress, Lungs Clear, Normal Breath Sounds Cardiovascular: Normal Peripheral Pulses, Regular Rate, Rhythm GI/Abdominal: Soft, Non-Tender, No Distention Back Exam: Normal Inspection, Full Range of Motion Extremities: Normal Inspection, Normal Range of Motion, Non-Tender, No Pedal Edema Neurological: Alert, Oriented, Normal Cognition, Other (SLR is negative, 2+ patellar tendon reflexes) Psychiatric: Normal Affect, Normal Mood Skin Exam: Warm, Dry, Intact, Normal Color Lymphatic: No Adenopathy Course - Vital Signs Last Recorded V/S: Last Vital Signs Temp 35.5 C L 08/07/20 18:19 Pulse 110 H 08/07/20 18:19 Resp 18 08/07/20 18:19 BP 137/84 08/07/20 18:19 Pulse Ox 97 08/07/20 18:19 - Orders/Labs/Meds Meds: Medications Discontinued Medications Generic Name Dose Route Start Last Admin Trade Name Freq PRN Reason Stop Dose Admin Ketorolac Tromethamine 60 mg 08/07/20 19:22 Toradol IM 08/07/20 19:23 ONETIME ONE Departure - Departure Time of Disposition: 19:27 Disposition: Home, Self-Care 01 Clinical Impression: Wallet sciatica Qualifiers: Laterality: right Qualified Code(s): M54.31 - Sciatica, right side - Discharge Information *PRESCRIPTION DRUG MONITORING PROGRAM REVIEWED*: Not Applicable *COPY OF PRESCRIPTION DRUG MONITORING REPORT IN PATIENT [place]ET[place]: Not Applicable Prescriptions: Cyclobenzaprine [Flexeril] 1 tab PO TID PRN #20 tab PRN Reason: Muscle Spasm Referrals: Max Alexis MD [Primary Care Provider] - Additional Instructions: The following information is given to patients seen in the emergency department who are being discharged to home. This information is to outline your options for follow-up care. We provide all patients seen in our emergency department with a follow-up referral. The need for follow-up, as well as the timing and circumstances, are variable depending upon the specifics of your emergency department visit. If you don't have a primary care physician on staff, we will provide you with a referral. We always advise you to contact your personal physician following an emergency department visit to inform them of the circumstance of the visit and for follow-up with them and/or the need for any referrals to a consulting specialist. The emergency department will also refer you to a specialist when appropriate. This referral assures that you have the opportunity for follow-up care with a specialist. All of these measure are taken in an effort to provide you with optimal care, which includes your follow-up. Under all circumstances we always encourage you to contact your private physician who remains a resource for coordinating your care. When calling for follow-up care, please make the office aware that this follow-up is from your recent emergency room visit. If for any reason you are refused follow-up, please contact the [facility] Emergency Department at and asked to speak to the emergency department charge nurse. 1. You have indicated that you had a PET scan today and will be following up with your oncologist regarding results. Be certain to report your current symptoms. 2. Discontinue sitting on your wallet. 3. Follow up with your primary provider 4. Aleve 2 tabs a.m. and p.m. or ibuprofen 2-3 tabs 3 times daily as needed for discomfort. 5. Warm or cool pack whichever feels best 20 minutes every 3-4 hours as needed for discomfort 6. Flexeril every 8 hours as needed for muscle spasm. No driving or operating machinery with this medication. Sepsis Event Note (ED) - Evaluation Sepsis Screening Result: No Definite Risk - Focused Exam Vital Signs: Vital Signs Temp Pulse Resp BP Pulse Ox 08/07/20 18:19 35.5 C L 110 H 18 137/84 97
== END 2020-08-07 19:58 | disposition home or self-care (01) ==
LOC: MW.ED 17:56
DX: M54.31 Sciatica, right side (principal); C78.01 Secondary malignant neoplasm of right lung; C78.02 Secondary malignant neoplasm of left lung; C43.9 Malignant melanoma of skin, unspecified; Z87.891 Personal history of nicotine dependence
CPT/HCPCS: 96372; 99283; J1885

== ENCOUNTER 2020-09-07 13:07 | Emergency (ER) | payer MEDICAID ==
[2020-09-07] MEDS ORDERED: Sodium Chloride 0.9% 2.5 ML Syringe FLUSH PRN (13:31)
[2020-09-07] MEDS ORDERED: Sodium Chloride 0.9% 1,000 ML IV ONE (13:31)
[2020-09-07] MEDS ORDERED: Sodium Chloride 0.9% 10 ML Syringe FLUSH PRN (13:31)
[2020-09-07] MEDS ORDERED: diphenhydrAMINE 50 MG/ML SDV IVPUSH ONE (13:31)
[2020-09-07] MEDS ORDERED: Metoclopramide 10 MG/2 ML SDV IVPUSH ONE (13:31)
--- NOTE | 2020-09-07 14:28 | EDM.PDOC ---
ED HPI GENERAL MEDICAL PROBLEM - General Chief Complaint: Eye Problems Stated Complaint: MIGRAINE ISSUE WITH VISION IN LT EYE Time Seen by Provider: 09/07/20 13:15 - History of Present Illness INITIAL COMMENTS - FREE TEXT/NARRATIVE: Discussed the case with radiology has a right-sided intraparenchymal hemorrhage. I discussed the case with the emergency department at [facility]. They are tight on beds I discussed with Dr. Messina the neurosurgeon he does not believe due to the patient's metastatic disease he will be a surgical candidate but he is happy to consult I discussed the case with Dr. Jarvis as per list and they will accept the patient. 3:40 PM Headache Pain Score (Numeric/FACES): 4 - Related Data Allergies Allergy/AdvReac Type Severity Reaction Status Date / Time No Known Allergies Allergy Verified 09/07/20 13:26 Home Meds: Home Meds . [No Known Home Meds] 09/07/20 [History] Past Medical History - Past Health History Medical/Surgical History: Denies Medical/Surgical History HEENT History: Reports: None Cardiovascular History: Reports: None Respiratory History: Reports: Other (See Below) Other Respiratory History: CT scan of chest shows george pulmonary metastases Gastrointestinal History: Reports: Other (See Below) Other Gastrointestinal History: occasional heartburn Genitourinary History: Reports: None Musculoskeletal History: Reports: Fracture Other Musculoskeletal History: hx of fx left wrist, right ring finger, and both pinky toes Neurological History: Reports: None Psychiatric History: Reports: None Endocrine/Metabolic History: Reports: None Hematologic History: Reports: None Immunologic History: Reports: None Oncologic (Cancer) History: Reports: Lung, Malignant Melanoma, Other (See Below) Other Oncologic History: malignant melanoma with george pulmonary metastases Dermatologic History: Reports: Melanoma Other Dermatologic History: 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 - Infectious Disease History Infectious Disease History: Reports: None - Past Surgical History Head Surgeries/Procedures: Reports: None HEENT Surgical History: Reports: None Cardiovascular Surgical History: Reports: None Respiratory Surgical History: Reports: None GI Surgical History: Reports: None Male Surgical History: Reports: None Endocrine Surgical History: Reports: None Neurological Surgical History: Reports: None Musculoskeletal Surgical History: Reports: ORIF Other Musculoskeletal Surgeries/Procedures:: ORIF left wrist- has plate and screws Oncologic Surgical History: Reports: None Dermatological Surgical History: Reports: Other (See Below) Social & Family History - Family History Family Medical History: Noncontributory Cardiac: Reports: [place] OBGYN: Reports: Oncologic: Reports: Breast - Tobacco Use Tobacco Use Status *Q: Never Tobacco User - Caffeine Use Caffeine Use: Reports: None - Recreational Drug Use Recreational Drug Use: No ED ROS GENERAL - Review of Systems Review Of Systems: See Below ED EXAM GENERAL W FULL EYE - Physical Exam Exam: See Below #1 Interpretation EKG Interpretation Comments: EKG is normal sinus rhythm rate of 116 bpm with biatrial enlargement no gordo ischemia read and interpreted by me Course - Vital Signs Last Recorded V/S: Last Vital Signs Temp 36.6 C 09/07/20 13:27 Pulse 100 09/07/20 14:49 Resp 20 09/07/20 14:49 BP 136/98 H 09/07/20 14:49 Pulse Ox 94 L 09/07/20 14:49 - Orders/Labs/Meds Orders: Active Orders 24 hr Category Date Time Status EKG Documentation Completion [RC] STAT Care 09/07/20 13:31 Active Sodium Chloride 0.9% [Saline Flush] Med 09/07/20 13:31 Active 10 ml FLUSH ASDIRECTED PRN Sodium Chloride 0.9% [Saline Flush] Med 09/07/20 13:31 Active 2.5 ml FLUSH ASDIRECTED PRN Saline Lock Insert [OM.PC] Stat Oth 09/07/20 13:31 Ordered Medication Orders Sodium Chloride (Saline Flush) 10 ml FLUSH ASDIRECTED PRN PRN Reason: Keep Vein Open Last Admin: 09/07/20 13:53 Dose: 10 ml Documented by: AAMIR Sodium Chloride (Saline Flush) 2.5 ml FLUSH ASDIRECTED PRN PRN Reason: Keep Vein Open Last Admin: 09/07/20 13:53 Dose: 2.5 ml Documented by: AAMIR Labs: Laboratory Tests 09/07/20 09/07/20 09/07/20 Range/Units 14:06 14:06 14:06 WBC 11.36 H (4.0-11.0) K/uL RBC 4.89 (4.50-5.90) M/uL Hgb 10.2 L (13.0-17.0) g/dL Hct 35.4 L (38.0-50.0) % MCV 72.4 L (80.0-98.0) fL MCH 20.9 L (27.0-32.0) pg MCHC 28.8 L (31.0-37.0) g/dL RDW Std Deviation 47.2 (28.0-62.0) fl RDW Coeff of Carol 18 H (11.0-15.0) % Plt Count 480 H (150-400) K/uL MPV 8.90 (7.40-12.00) fL Neut % (Auto) 81.3 H (48.0-80.0) % Lymph % (Auto) 10.2 L (16.0-40.0) % [place] % (Auto) 6.0 (0.0-15.0) % Eos % (Auto) 2.1 (0.0-7.0) % Baso % (Auto) 0.4 (0.0-1.5) % Neut # (Auto) 9.2 H (1.4-5.7) K/uL Lymph # (Auto) 1.2 (0.6-2.4) K/uL [place] # (Auto) 0.7 (0.0-0.8) K/uL Eos # (Auto) 0.2 (0.0-0.7) K/uL Baso # (Auto) 0.0 (0.0-0.1) K/uL Nucleated RBC % 0.0 /100WBC Nucleated RBCs # 0 K/uL INR 1.10 Sodium 139 (136-148) mmol/L Potassium 4.0 (3.5-5.1) mmol/L Chloride 101 (98-107) mmol/L Carbon Dioxide 26.3 (21.0-32.0) mmol/L BUN 12 (7.0-18.0) mg/dL Creatinine 0.9 (0.8-1.3) mg/dL Est Cr Clr Drug Dosing 110.83 mL/min Estimated GFR (MDRD) > 60.0 ml/min Glucose 90 (74-106) mg/dL Calcium 9.3 (8.5-10.1) mg/dL Total Bilirubin 0.2 (0.2-1.0) mg/dL AST 18 (15-37) IU/L ALT 13 L (14-63) IU/L Alkaline Phosphatase 83 (46-116) U/L Troponin I < 0.050 (0.000-0.056) ng/mL Total Protein 7.9 (6.4-8.2) g/dL Albumin 3.1 L (3.4-5.0) g/dL Globulin 4.8 H (2.6-4.0) g/dL Albumin/Globulin Ratio 0.7 L (0.9-1.6) Meds: Medications Generic Name Dose Route Start Last Admin Trade Name Freq PRN Reason Stop Dose Admin Sodium Chloride 10 ml 09/07/20 13:31 09/07/20 13:53 Saline Flush FLUSH 10 ml ASDIRECTED PRN Administration Keep Vein Open Sodium Chloride 2.5 ml 09/07/20 13:31 09/07/20 13:53 Saline Flush FLUSH 2.5 ml ASDIRECTED PRN Administration Keep Vein Open Discontinued Medications Generic Name Dose Route Start Last Admin Trade Name Freq PRN Reason Stop Dose Admin Diphenhydramine HCl 50 mg 09/07/20 13:31 09/07/20 13:52 Benadryl IVPUSH 09/07/20 13:32 50 mg ONETIME ONE Administration Sodium Chloride 1,000 mls @ 999 mls/hr 09/07/20 13:31 09/07/20 13:52 Normal Saline IV 09/07/20 14:31 999 mls/hr .Bolus ONE Administration Metoclopramide HCl 10 mg 09/07/20 13:31 09/07/20 13:52 Reglan IVPUSH 09/07/20 13:32 10 mg ONETIME ONE Administration Departure - Departure Time of Disposition: 15:48 Disposition: DC/Tfer to Acute Hospital 02 Condition: Poor Clinical Impression: Intraparenchymal hemorrhage of brain - Discharge Information Referrals: Max Alexis MD [Primary Care Provider] - Forms: ED Department Discharge Sepsis Event Note (ED) - Evaluation Sepsis Screening Result: No Definite Risk - Focused Exam Vital Signs: Vital Signs Temp Pulse Resp BP Pulse Ox 09/07/20 14:49 100 20 136/98 H 94 L 09/07/20 14:20 111 H 22 H 141/104 H 98 09/07/20 13:27 36.6 C 125 H 18 147/105 H 99 - My Orders Last 24 Hours: My Active Orders 09/07/20 13:31 EKG Documentation Completion [RC] STAT Sodium Chloride 0.9% [Saline Flush] 10 ml FLUSH ASDIRECTED PRN Sodium Chloride 0.9% [Saline Flush] 2.5 ml FLUSH ASDIRECTED PRN Saline Lock Insert [OM.PC] Stat - Assessment/Plan Last 24 Hours: My Active Orders 09/07/20 13:31 EKG Documentation Completion [RC] STAT Sodium Chloride 0.9% [Saline Flush] 10 ml FLUSH ASDIRECTED PRN Sodium Chloride 0.9% [Saline Flush] 2.5 ml FLUSH ASDIRECTED PRN Saline Lock Insert [OM.PC] Stat
[2020-09-07 14:46] LABS: BLOOD UREA NITROGEN,BUN 12 mg/dL (7.0-18.0); CARBON DIOXIDE,CO2 26.3 mmol/L (21.0-32.0); CHLORIDE,CL 101 mmol/L (98-107); GLUCOSE RANDOM 90 mg/dL (74-106); SODIUM,NA 139 mmol/L (136-148)
--- NOTE | 2020-09-07 15:17 | CT ---
INDICATION: Headache, history of melanoma with metastases status post radiation treatment to the brain in May 2020 TECHNIQUE: CT head without contrast. COMPARISON: MR brain May 29, 2020 FINDINGS: CSF spaces: Within normal limits for age. Brain parenchyma: There is a 2.5 x 4.6 4.3 cm intraparenchymal hematoma within the right frontal lobe. Moderate amount of surrounding edema. There is midline shift to the left at the level of the posterior falx measuring 4 mm. There is mass effect on the right lateral ventricle and mild edema throughout the right cerebrum. No transtentorial herniation. Skull base and calvarium: The visualized paranasal sinuses and mastoid air cells demonstrate no acute or significant findings. The visualized orbits are grossly unremarkable. No skull fractures. IMPRESSION: 1. Greater than 4 cm intraparenchymal hematoma in the right frontal lobe with moderate amount of surrounding edema. Transfalcine herniation to the left measuring 4 mm. Mass effect on the right lateral ventricle without evidence for hydrocephalus. The hemorrhage could be due to a bleeding metastases, a vascular malformation, or hypertensive hemorrhage. Note that no mass was seen in this region on the prior MR from May 29, 2020. 2. The previously identified mass adjacent to the left occipital horn is not clearly seen on this noncontrast exam. 3. Findings discussed with Dr. Matthew 3:12 p.m. on September 07, 2020. Please note that all CT scans at this facility use dose modulation, iterative reconstruction, and/or weight-based dosing when appropriate to reduce radiation dose to as low as reasonably achievable. Dictated by Carolee Ontiveros MD @ Sep 07 2020 3:05PM Signed by Dr. Carolee Ontiveros @ Sep 07 2020 3:15PM
[2020-09-07] MEDS ORDERED: Morphine 4 MG/ML Syringe IVPUSH ONE ×3 (15:49→17:08)
[2020-09-07] MEDS ORDERED: Morphine 4 MG/ML Syringe ONE (17:05)
== END 2020-09-07 17:13 ==
LOC: MW.ED 13:07
DX: I61.9 Nontraumatic intracerebral hemorrhage, unspecified (principal)
CPT/HCPCS: 36415; 70450; 80053; 84484; 85025; 85610; 93005; 96374; 96375; 96376; 99285; J1200; J2270; J2765; J7030; 93010